=== PATIENT | female | born 1945 | race Caucasian/White ===

== ENCOUNTER → 2016-06-03 | Outpatient (CLI) | payer MEDICARE, OTHER | LOC: OD 12:43 | PROVIDERS: ATTEND Nurse Practitioner | DX: J18.9 Pneumonia, unspecified organism (principal); M19.042 Primary osteoarthritis, left hand | CPT/HCPCS: 71020 ==

== ENCOUNTER 2016-06-14 16:25 | Inpatient (IN) | payer MEDICARE, OTHER ==
[~2016-06-14 16:25] MED LIST: SUCCINYLCHOLINE CHLORIDE INJ 200 MG/10 ML VIAL ONE
[2016-06-14] MEDS ORDERED: CEFTRIAXONE 1 GM/D5W RTU 50 ML IV ONE (16:37)
--- NOTE | 2016-06-14 16:38 | ER Document Report ---
ED General - General Stated Complaint: DIFFICULTY BREATHING Mode of Arrival: Medic Information source: Emergency Med Personnel Cannot obtain history due to: Altered mental status Notes: 71-year-old female history CHF COPD smoker presents from home in respiratory distress. EMS found patient satting in the low 60s, BiPAP was immediately placed. Symptoms have spoken on going only for 3 hours TRAVEL OUTSIDE OF THE [place] IN LAST 30 DAYS: No - HPI Onset: Just prior to arrival Onset/Duration: Sudden Quality of pain: No pain Severity: Severe Pain Level: Denies Associated symptoms: Nonproductive cough, Shortness of breath Exacerbated by: Denies Relieved by: Denies Similar symptoms previously: No Recently seen / treated by doctor: No - Related Data Allergies/Adverse Reactions: codeine [Codeine] Allergy (Mild, Verified 11/12/11 10:26) feels out of control Tetanus Vaccines and Toxoid [Tetanus] Allergy (Unknown, Verified 11/12/11 10:27) arm swell at injection site Past Medical History - Social History Smoking Status: Current Every Day Smoker Cigarette use (# per day): No Chew tobacco use (# tins/day): No Smoking Education Provided: No Family History: Reviewed & Not Pertinent - Past Medical History Cardiac Medical History: Reports: Hx Coronary Artery Disease, Hx Hypertension - medicated Denies: Hx Heart Attack - ? silent MD Pulmonary Medical History: Reports: Hx Bronchitis - was tx 01/16 with solumedrol & Z pack for suspected bronchitis, Hx COPD, Hx Pneumonia - 2006 Denies: Hx Asthma Neurological Medical History: Denies: Hx Cerebrovascular Accident, Hx Seizures GI Medical History: Denies: Hx Hepatitis, Hx Hiatal Hernia, Hx Ulcer Musculoskeltal Medical History: Denies Hx Arthritis Infectious Medical History: Denies: Hx Hepatitis Past Surgical History: Reports: Hx Hysterectomy, Hx Mastectomy - right breast/ restrictions to rt arm. Denies: Hx Open Heart Surgery, Hx Pacemaker - Immunizations Hx Diphtheria, Pertussis, Tetanus Vaccination: No - has swelling at site Review of Systems - Review of Systems Notes: PHYSICAL EXAMINATION: GENERAL: Ill-appearing female significant respiratory distress HEAD: Atraumatic, normocephalic. EYES: Pupils equal round and reactive to light, extraocular movements intact, conjunctiva are normal. ENT: Nares patent, oropharynx clear without exudates. Moist mucous membranes. NECK: Normal range of motion, supple without lymphadenopathy LUNGS: Coarse breath sounds rhonchi all throughout mastectomy HEART: Tachycardic ABDOMEN: Soft, nontender, nondistended abdomen. No guarding, no rebound. No masses appreciated. Female : deferred Musculoskeletal: Patient moving extremities spontaneously NEUROLOGICAL: GCS 10 SKIN: Diaphoretic -: Yes ROS unobtainable due to patient's medical condition Physical Exam - Vital signs Vitals: Pulse Ox 92 06/14/16 17:05 Course - Re-evaluation Re-evalutation: 06/14/16 16:37 Patient on BiPAP satting 79%, immediately intubated on arrival for airway protection 06/14/16 16:53 06/14/16 18:07 X-rays consistent with pneumonia with probable CHF exacerbation, patient will be admitted to hospitalist service to the ICU since she is intubated at this time - Vital Signs Vital signs: Temp Pulse Resp BP Pulse Ox 92 06/14/16 17:05 - Laboratory Result Diagrams: 06/14/16 17:43 06/14/16 17:43 - Diagnostic Test Radiology reviewed: Image reviewed, Reports reviewed Procedures - Intubation Orotracheal Time of Intubation: 16:30 Airway evaluation: Copious secretions, Large tongue Mallampati Classification: Class 3 Medications: Etomidate, Succinylcholine Intubation method: Orotracheal Blade type: Gonzalo Blade size: 4 ETT size: 7.0 ETT secured at: Gums ETT secured at (cm): 22 Breath Sounds after Intubation: Equal End tidal CO2 confirmed: Yes Post Intubation Xray: Yes Intubation Complications: No complications Critical Care Note - Critical Care Note Total time excluding time spent on procedures (mins): 45 Comments: 45 minutes of critical care time spent in direct contact evaluating and reevaluating the patient, treating symptoms, reviewing labs and studies and speaking with family and consultants excluding any procedures Discharge - Discharge Clinical Impression: Respiratory failure requiring intubation Pneumonia Qualifiers: Pneumonia type: due to unspecified organism Laterality: bilateral Lung location : unspecified part of lung Qualified Code(s): J18.9 - Pneumonia, unspecified organism Sepsis Qualifiers: Sepsis type: sepsis due to unspecified organism Qualified Code(s): A41.9 - Sepsis, unspecified organism Condition: Critical Disposition: ADMITTED INPATIENT Admitting Provider: Hospitalist Unit Admitted: ICU
[2016-06-14] MEDS ORDERED: LEVOFLOXACIN 750 MG/D5W RTU 150 ML IV ONE (17:23)
[2016-06-14] MEDS ORDERED: PROPOFOL 100 ML IV ONE (17:31)
[2016-06-14] MEDS ORDERED: ETOMIDATE INJ/PF 20 MG/10 ML SDV IV ONE ×2 (17:31→23:31)
[2016-06-14 18:00] LABS: HEMATOCRIT 31.7 % (36.0-47.0); HEMOGLOBIN 10.3 g/dL (12.0-15.5); HGB HCT DIFFERENCE -0.8; MEAN CORPUSCULAR HEMOGLOBIN 25.4 pg (27.0-33.4); MEAN CORPUSCULAR HGB CONC 32.6 g/dL (32.0-36.0); MEAN CORPUSCULAR VOLUME 78 fl (80-97); RED BLOOD COUNT 4.07 10^6/uL (3.72-5.28); WHITE BLOOD COUNT 25.7 10^3/uL (4.0-10.5)
[2016-06-14 18:10] LABS: PROTHROMBIN TIME 14.8 SEC (11.4-15.4)
[2016-06-14 18:18] LABS: ALANINE AMINOTRANSFERASE 53 U/L (9-52); ALBUMIN 3.4 g/dL (3.5-5.0); ALKALINE PHOSPHATASE 101 U/L (38-126); ANION GAP 15 (5-19); ASPARTATE AMINO TRANSFERASE 69 U/L (14-36); BILIRUBIN,TOTAL 1.3 mg/dL (0.2-1.3); BLOOD UREA NITROGEN 23 mg/dL (7-20); CARBON DIOXIDE 19 mmol/L (22-30); CHLORIDE 98 mmol/L (98-107); CREATININE RESULT 1.37 mg/dL (0.52-1.25); GLUCOSE 271 mg/dL (75-110); POTASSIUM 5.7 mmol/L (3.6-5.0); SODIUM 131.6 mmol/L (137-145)
[2016-06-14 18:19] LABS: BAND NEUTROPHILS % (MANUAL) 6 % (3-5); BASOPHILS % (MANUAL) 0 % (0-2); EOSINOPHILS % (MANUAL) 0 % (0-6); LYMPHOCYTES % (MANUAL) 1 % (13-45); TOTAL CELLS COUNTED 100
[2016-06-14] MEDS ORDERED: LORAZEPAM INJ 2 MG/1 ML VIAL ONE (18:20)
[2016-06-14 18:21] LABS: ANISOCYTOSIS 1+; HYPOCHROMASIA SLIGHT; MICROCYTOSIS 1+; PLATELET CLUMPS PRESENT; POLYCHROMASIA SLIGHT
[2016-06-14] MEDS ORDERED: VANCOMYCIN HCL 1,000 MG in DEXTROSE 5%-WATER 250 ML IV ONE (18:24)
[2016-06-14 18:26] LABS: CALCIUM 6.7 mg/dL (8.4-10.2)
[2016-06-14 18:36] LABS: VENOUS BLOOD BASE EXCESS -5.2 mmol/L; VENOUS BLOOD HCO3 19.9 mmol/L (20-32); VENOUS BLOOD PCO2 37.2 mmHg (35-63); VENOUS BLOOD PH 7.35 (7.30-7.42)
--- NOTE | 2016-06-14 18:38 | EKG REPORT ---
SEVERITY:- ABNORMAL ECG - SINUS RHYTHM PROBABLE LEFT ATRIAL ABNORMALITY NONSPECIFIC INTRAVENTRICULAR CONDUCTION DELAY LEFT VENTRICULAR HYPERTROPHY ANTERIOR Q WAVES, POSSIBLY DUE TO LVH : Confirmed by: Manuel Delarosa 14-Jun-2016 18:38:16
[2016-06-14] MEDS ORDERED: CALCIUM GLUCONATE 2,222 MG in DEXTROSE 5%-WATER 100 ML IV ONE ×2 (18:40→23:35)
[2016-06-14] MEDS ORDERED: NORMAL SALINE 1000 ML 1,000 ML IV PRN (18:42)
[2016-06-14] MEDS ORDERED: DEXTROSE 50%-WATER 25 GM/50 ML DISP.SYRIN IV PRN ×2 (18:43)
[2016-06-14] MEDS ORDERED: DEXTROSE 40% GEL 15 GM TUBE PO PRN ×2 (18:43)
[2016-06-14] MEDS ORDERED: GLUCAGON,HUMAN RECOMB 1 MG INJ IM PRN (18:43)
[2016-06-14] MEDS ORDERED: INSULIN REG, HUMAN 100 UNIT/ML 3 ML VIAL (PYX) SUBCUT PRN (18:43)
--- NOTE | 2016-06-14 18:51 | PDOC H&P ---
History of Present Illness Admission Date/PCP: 06/14/16 18:33 MICAH Yancy EMILY Patient complains of: SOB History of Present Illness: JUS ERICKSON is a 71 year old female Patient nonsmoker non-O2 dependent was brought to the ED after 1 week of respiratory illness during transport patient was placed on BiPAP support and very soon after was intubated in the ED and placed on mechanical ventilation Chest x-ray showed bilateral infiltrates White blood count was 29,000 She was subsequently admitted to intensive care unit under hospitalist service Past Medical History Cardiac Medical History: Reports: Coronary Artery Disease, Hypertension - medicated Denies: Myocardial Infarction - ? silent [place] Pulmonary Medical History: Reports: Bronchitis - was tx 01/16 with solumedrol & Z pack for suspected bronchitis, Chronic Obstructive Pulmonary Disease (COPD), Pneumonia - 2006 Denies: Asthma Neurological Medical History: Denies: Seizures GI Medical History: Denies: Hepatitis, Hiatal Hernia Musculoskeltal Medical History: Denies: Arthritis Hematology: Reports: Anemia - ?? Denies: Sickle Cell Disease Past Surgical History Past Surgical History: Reports: Hysterectomy, Mastectomy - right breast/ restrictions to rt arm Denies: Amputation, Pacemaker Social History Information Source: Relative Smoking Status: Current Every Day Smoker - Advance Directive Resuscitation Status: Full Code Surrogate healthcare decision maker:: Daughters Family History Family History: Reviewed & Not Pertinent Parental Family History Reviewed: Yes Children Family History Reviewed: Yes Sibling(s) Family History Reviewed.: Yes Medication/Allergy Home Medications: Atenolol [Tenormin] 100 mg PO BID 10/14/11 Atorvastatin Calcium [Lipitor 10 Mg Tablet] 80 mg PO QHS 10/14/11 Diltiazem HCl [Diltiazem Er] 120 mg PO BID 10/14/11 Furosemide [Lasix 40 mg Tablet] 40 mg PO BID 10/14/11 Levothyroxine Sodium [Synthroid 112 Mcg Tablet] 0.125 mcg PO DAILY 10/14/11 Lisinopril [Prinivil 5 Mg Tablet] 5 mg PO BID 10/14/11 Metformin HCl [Glucophage 1000 mg Tablet] 1,000 mg PO BID 10/14/11 Potassium 25 Meq Tablet Eff 10 meq PO DAILY 10/14/11 Sertraline HCl [Zoloft] 100 mg PO DAILY 10/14/11 Calcitriol [Rocaltrol 0.25 Mcg Capsule] 0.25 mcg PO DAILY 11/12/11 Calcium/Magnesium/Vit D3 [Calcium 500 Mg Tablet] 2 each PO 11/12/11 Allergies/Adverse Reactions: codeine [Codeine] Allergy (Mild, Verified 11/12/11 10:26) feels out of control Tetanus Vaccines and Toxoid [Tetanus] Allergy (Unknown, Verified 11/12/11 10:27) arm swell at injection site Review of Systems ROS unobtainable: Due to endotracheal tube Physical Exam Vital Signs: Temp Pulse Resp BP Pulse Ox 92 06/14/16 17:05 General appearance: PRESENT: thin, other - Intubated mechanically ventilated and sedated Head exam: PRESENT: atraumatic, normocephalic Eye exam: PRESENT: conjunctiva pink, EOMI, PERRLA. ABSENT: scleral icterus Neck exam: ABSENT: carotid bruit, JVD, lymphadenopathy, thyromegaly Respiratory exam: PRESENT: decreased breath sounds, rales - Bilaterally Cardiovascular exam: PRESENT: RRR, tachycardia Pulses: PRESENT: normal carotid pulses GI/Abdominal exam: PRESENT: normal bowel sounds, soft. ABSENT: distended, guarding, mass, organolmegaly, rebound, tenderness Extremities exam: PRESENT: full ROM. ABSENT: calf tenderness, clubbing, pedal edema Neurological exam: PRESENT: other - Cannot evaluate patient is sedated and on mechanical ventilation Results Laboratory Results: Labs- Entire Visit 06/14/16 06/14/16 06/14/16 17:43 17:43 17:43 WBC 25.7 H RBC 4.07 Hgb 10.3 L Hct 31.7 L MCV 78 L MCH 25.4 L MCHC 32.6 RDW 17.0 H Plt Count 299 Total Counted 100 Seg Neutrophils % Not Reportable Seg Neuts % (Manual) 92 H Band Neutrophils % 6 H Lymphocytes % Not Reportable Lymphocytes % (Manual) 1 L Monocytes % Not Reportable Monocytes % (Manual) 1 L Eosinophils % Not Reportable Eosinophils % (Manual) 0 Basophils % Not Reportable Basophils % (Manual) 0 Absolute Neutrophils Not Reportable Abs Neuts (Manual) 25.2 H Absolute Lymphocytes Not Reportable Abs Lymphs (Manual) 0.3 L Absolute Monocytes Not Reportable Abs Monocytes (Manual) 0.3 Absolute Eosinophils Not Reportable Absolute Eos (Manual) 0.0 Absolute Basophils Not Reportable Abs Basophils (Manual) 0.0 Clumped Platelets PRESENT Platelet Comment ADEQUATE Polychromasia SLIGHT Hypochromasia SLIGHT Anisocytosis 1+ Microcytosis 1+ PT 14.8 INR 1.12 VBG pH VBG pCO2 VBG HCO3 VBG Base Excess Sodium 131.6 L Potassium 5.7 H Chloride 98 Carbon Dioxide 19 L Anion Gap 15 BUN 23 H Creatinine 1.37 H Est GFR ( Amer) 46 L Est GFR (Non-Af Amer) 38 L Glucose 271 H Lactic Acid Calcium 6.7 L* Total Bilirubin 1.3 Direct Bilirubin 0.0 AST 69 H ALT 53 H Alkaline Phosphatase 101 Total Protein 6.0 L Albumin 3.4 L 06/14/16 06/14/16 17:43 18:17 WBC RBC Hgb Hct MCV MCH MCHC RDW Plt Count Total Counted Seg Neutrophils % Seg Neuts % (Manual) Band Neutrophils % Lymphocytes % Lymphocytes % (Manual) Monocytes % Monocytes % (Manual) Eosinophils % Eosinophils % (Manual) Basophils % Basophils % (Manual) Absolute Neutrophils Abs Neuts (Manual) Absolute Lymphocytes Abs Lymphs (Manual) Absolute Monocytes Abs Monocytes (Manual) Absolute Eosinophils Absolute Eos (Manual) Absolute Basophils Abs Basophils (Manual) Clumped Platelets Platelet Comment Polychromasia Hypochromasia Anisocytosis Microcytosis PT INR VBG pH 7.35 VBG pCO2 37.2 VBG HCO3 19.9 L VBG Base Excess -5.2 Sodium Potassium Chloride Carbon Dioxide Anion Gap BUN Creatinine Est GFR ( Amer) Est GFR (Non-Af Amer) Glucose Lactic Acid 2.7 H Calcium Total Bilirubin Direct Bilirubin AST ALT Alkaline Phosphatase Total Protein Albumin EKG Comments: SINUS RHYTHM [PLAA] . PROBABLE LEFT ATRIAL ABNORMALITY [NIVCD] . NONSPECIFIC INTRAVENTRICULAR CONDUCTION DELAY [LVH1] . LEFT VENTRICULAR HYPERTROPHY [AMI17] . ANTERIOR Q WAVES, POSSIBLY DUE TO LVH [id number] JUS ERICKSON 14-Jun-2016 17:01:01 : 1945 71 Years Female Race: White Dept: ED Impressions: Chest X-Ray 06/14/16 16:37 IMPRESSION: 1. Diffuse bilateral alveolar infiltrates, differential including pneumonia/aspiration predominantly. Pulmonary hemorrhage and pulmonary edema felt to be less likely. 2. Appropriate endotracheal tube. 3. Mild gaseous distention in the stomach. Consider placement of a nasogastric tube. Assessment & Plan - Diagnosis (3) Pneumonia Qualifiers: Pneumonia type: due to unspecified organism Laterality: bilateral Lung location: unspecified part of lung Qualified Code(s): J18.9 - Pneumonia, unspecified organism Is this a current diagnosis for this admission?: YesPlan: Bilateral pneumonia Influenza screening was sent (4) Respiratory failure requiring intubation Is this a current diagnosis for this admission?: Yes (5) Sepsis Qualifiers: Sepsis type: sepsis due to unspecified organism Qualified Code(s): A41.9 - Sepsis, unspecified organism Is this a current diagnosis for this admission?: Yes - Time Time Spent with patient: We will initiate treatment with Levaquin and Zosyn and linezolid On the chest x-ray patient has significant cardiomegaly; and a BNP is pending We will just initiate IV fluid after 150 mL/h and reevaluate fluid status There is central venous pressure may be obtained Continue mechanical ventilation Continue sedation with propofol Echocardiogram was performed at bedside There is a very small pericardial effusion without temp amount The heart is enlarged Critical Time spent with patient: 35 or more minutes
[2016-06-14] MEDS ORDERED: LINEZOLID 300 ML IV ONE (19:00)
[2016-06-14] MEDS ORDERED: FUROSEMIDE INJ/PF 20 MG/2 ML SDV IV ONE (19:05)
[2016-06-14 20:44] LABS: THYROID STIMULATING HORMONE 2.78 uIU/mL (0.47-4.68)
[2016-06-14 20:53] LABS: APPEARANCE,URINE SLIGHTLY-CLOUDY; BILIRUBIN,URINE NEGATIVE (NEGATIVE); GLUCOSE, URINE NEGATIVE (NEGATIVE); KETONES,URINE NEGATIVE (NEGATIVE); LEUKOCYTE ESTERASE,URINE NEGATIVE (NEGATIVE); NITRITE,URINE NEGATIVE (NEGATIVE); PROTEIN,URINE >=500 mg/dL (NEGATIVE); URINE SPECIFIC GRAVITY 1.013; UROBILINOGEN,URINE NEGATIVE mg/dL (<2.0)
[2016-06-14 21:48] LABS: ARTERIAL BLOOD BASE EXCESS -1.6 mmol/L; ARTERIAL BLOOD O2 SATURATION 88.2 % (94-98)
[2016-06-14] MEDS ORDERED: NORMAL SALINE INJ/PF 0.9% 10 ML SDV IV PRN (22:04)
--- NOTE | 2016-06-14 22:08 | Operative Report ---
Operative Report DATE OF SURGERY: 06/14/16 PREOPERATIVE DIAGNOSIS: Critically ill patient, need for central venous access POSTOPERATIVE DIAGNOSIS: Critically ill patient, need for central venous access OPERATION: Right internal jugular vein 7 [place]ian triple-lumen central venous line placement with ultrasound guidance SURGEON: CARY REYNOLDS ANESTHESIA: Local TISSUE REMOVED OR ALTERED: None COMPLICATIONS: None noted ESTIMATED BLOOD LOSS: minimal INTRAOPERATIVE FINDINGS: Normal location of the right internal carotid artery and the right internal jugular vein as identified by ultrasound. PROCEDURE: Timeout was performed. The patient was prepped and draped in normal sterile fashion. Ultrasound was used to identify the right internal jugular vein and right common carotid artery. The skin over the vein was infiltrated with local anesthetic. An 11 blade scalpel was used to make a skin tali. Under ultrasound guidance, a Cook needle was used to cannulate the right internal jugular vein with return of nonpulsatile dark red venous blood. Seldinger technique was used. The guidewire was placed. The Cook needle was removed. The tract was dilated. Catheter was placed over the guidewire. The guidewire was removed. All lumens easily aspirated and flushed. The catheter was sewn in place at the skin and at the end hub. A Biopatch was placed. A sterile dressing was placed. All sharps were accounted for and disposed of properly. The patient tolerated the procedure well. A chest x-ray was ordered and confirmed good location of the line with no pneumothorax.
[2016-06-14] MEDS ORDERED: PIPERACILLIN SODIUM/TAZOBACTAM 3.375 GM in NORMAL SALINE 100 ML IV ONE (22:15)
[2016-06-14] MEDS ORDERED: ACETAMINOPHEN 325 MG TABLET PO PRN (22:16)
[2016-06-14] MEDS ORDERED: CALCIUM GLUCONATE 1000 MG/10 ML INJ IV ONE (23:20)
[2016-06-14] MEDS ORDERED: FUROSEMIDE INJ/PF 20 MG/2 ML SDV ONE (23:21)
[2016-06-14] MEDS ORDERED: PROPOFOL 100 ML IV PRN (23:31)
[2016-06-14] MEDS ORDERED: SUCCINYLCHOLINE CHLORIDE INJ 200 MG/10 ML VIAL IV ONE (23:31)
[2016-06-14] MEDS ORDERED: INFLUENZA ADLT QUAD (36MOS+) 2016-17 VAC 0.5 ML SYR IM PRN (23:41)
[2016-06-15] MEDS ORDERED: PIPERACILLIN/TAZOBACTAM 3.375 GM VIAL IV ONE ×2 (01:10→06:38)
[2016-06-15] MEDS: ALBUTEROL SULFATE 0.083% NEB 2.5 MG/3 ML AMPUL NEB SCH ×3 (02:43→13:30)
[2016-06-15] MEDS: PROPOFOL 100 ML IV PRN ×3 (02:50→13:54)
[2016-06-15] MEDS ORDERED: PIPERACILLIN SODIUM/TAZOBACTAM 3.375 GM in NORMAL SALINE 100 ML IV SCH ×3 (06:00)
[2016-06-15 06:44] LABS: ANION GAP 10 (5-19); BLOOD UREA NITROGEN 32 mg/dL (7-20); CALCIUM 7.1 mg/dL (8.4-10.2); CARBON DIOXIDE 21 mmol/L (22-30); CHLORIDE 101 mmol/L (98-107); CREATININE RESULT 1.47 mg/dL (0.52-1.25); GLUCOSE 161 mg/dL (75-110); SODIUM 131.8 mmol/L (137-145); TRIGLYCERIDES 86 mg/dL (<150)
[2016-06-15 06:55] LABS: POTASSIUM 4.7 mmol/L (3.6-5.0)
[2016-06-15 06:59] LABS: HEMATOCRIT 27.1 % (36.0-47.0); HGB HCT DIFFERENCE -0.1; MEAN CORPUSCULAR HEMOGLOBIN 25.3 pg (27.0-33.4); MEAN CORPUSCULAR HGB CONC 33.2 g/dL (32.0-36.0); MEAN CORPUSCULAR VOLUME 76 fl (80-97); RED BLOOD COUNT 3.55 10^6/uL (3.72-5.28); RED CELL DISTRIBUTION WIDTH 16.9 % (11.5-14.0); WHITE BLOOD COUNT 21.9 10^3/uL (4.0-10.5)
[2016-06-15 07:05] LABS: BAND NEUTROPHILS % (MANUAL) 4 % (3-5); BASOPHILS % (MANUAL) 0 % (0-2); EOSINOPHILS % (MANUAL) 0 % (0-6); LYMPHOCYTES % (MANUAL) 1 % (13-45); TOTAL CELLS COUNTED 100
[2016-06-15 07:07] LABS: ANISOCYTOSIS 1+; HYPOCHROMASIA SLIGHT; MICROCYTOSIS 1+; OVALOCYTES SLIGHT; POIKILOCYTOSIS SLIGHT; POLYCHROMASIA SLIGHT; TEAR DROP CELLS SLIGHT
[2016-06-15] MEDS ORDERED: MIDAZOLAM HCL 100 ML IV PRN (07:34)
[2016-06-15] MEDS ORDERED: NORMAL SALINE 1000 ML 1,000 ML IV PRN (07:47)
[2016-06-15] MEDS ORDERED: FUROSEMIDE INJ/PF 20 MG/2 ML SDV ONE (07:50)
[2016-06-15] MEDS ORDERED: MIDAZOLAM HCL 100 ML IV ONE (07:50)
[2016-06-15] MEDS ORDERED: CALCIUM GLUCONATE 1000 MG/10 ML INJ IV ONE ×2 (08:55→09:00)
[2016-06-15 09:00] LABS: ARTERIAL BLOOD BASE EXCESS -3.1 mmol/L; ARTERIAL BLOOD O2 SATURATION 94.9 % (94-98)
[2016-06-15] MEDS ORDERED: FUROSEMIDE INJ/PF 20 MG/2 ML SDV IV ONE (09:00)
[2016-06-15] MEDS ORDERED: CALCIUM GLUCONATE 2,000 MG in DEXTROSE 5%-WATER 100 ML IV ONE (09:30)
[2016-06-15] MEDS ORDERED: LINEZOLID 600 MG RTU 300 ML IV SCH (10:00)
[2016-06-15] MEDS ORDERED: LINEZOLID 300 ML IV SCH (10:00)
[2016-06-15 10:09] LABS: CREATINE KINASE MB 2.46 ng/mL (<4.55)
[2016-06-15 10:13] LABS: TROPONIN I 1.46 ng/mL
--- NOTE | 2016-06-15 10:40 | EKG REPORT ---
SEVERITY:- ABNORMAL ECG - SINUS RHYTHM ANTERIOR INFARCT, AGE INDETERMINATE BORDERLINE T ABNORMALITIES, INFERIOR LEADS PROLONGED QT INTERVAL : Confirmed by: Manuel Delarosa 15-Jun-2016 10:39:59
[2016-06-15] MEDS: PIPERACILLIN SODIUM/TAZOBACTAM 2.25 GM in NORMAL SALINE 50 ML IV SCH ×2 (12:55→18:10)
--- NOTE | 2016-06-15 13:47 | PDOC TRANSFER SUMMARY ---
General Admission Date/PCP: 06/14/16 22:16 MICAH DIAZ Admission Date: 06/14/16 Transfer Date: 06/15/16 Accepting Facility: [facility] Resuscitation Status: Full Code - Transfer Diagnosis (1) CKD (chronic kidney disease), stage III Is this a current diagnosis for this admission?: Yes (2) Poor intravenous access Is this a current diagnosis for this admission?: YesDiagnosis Summary: triple lumen catheter placed right IJ (3) Pneumonia Is this a current diagnosis for this admission?: Yes (4) Respiratory failure requiring intubation Is this a current diagnosis for this admission?: Yes (5) Sepsis Is this a current diagnosis for this admission?: YesDiagnosis Summary: 06/14/16 06/15/16 06/15/16 17:43 06:05 06:05 WBC 25.7 H 21.9 H Hgb 10.3 L 9.0 L Seg Neuts % (Manual) 92 H 94 H ESR 88 H 06/14/16 06/14/16 17:43 22:18 Lactic Acid 2.7 H 1.1 (6) Cardiomyopathy Is this a current diagnosis for this admission?: YesDiagnosis Summary: Echocardiogram : EF 30% with global hypokinesia left ventricle (7) Ischemia due to increased oxygen demand Is this a current diagnosis for this admission?: YesDiagnosis Summary: 06/14/16 06/15/16 17:43 09:20 Troponin I 1.460 NT-Pro-B Natriuret Pep 66267 H EKG changes with new ST depression anterior leads and T depression Q waves V1-6 troponin 1.4 (8) Hypocalcemia Is this a current diagnosis for this admission?: YesDiagnosis Summary: 06/14/16 06/15/16 17:43 06:05 Calcium 6.7 L* 7.1 L Calcium was relaced Vitamin D levels pending (9) Anemia Is this a current diagnosis for this admission?: YesDiagnosis Summary: microcytic - likely iron deficiency anemia 06/15/16 06:05 Hgb 9.0 L Hct 27.1 L MCV 76 L - Transfer Medications Home Medications: Atenolol [Tenormin] 50 mg PO BID 10/14/11 Atorvastatin Calcium [Lipitor 10 Mg Tablet] 80 mg PO QHS 10/14/11 Diltiazem HCl [Diltiazem Er] 120 mg PO BID 10/14/11 Furosemide [Lasix 40 mg Tablet] 40 mg PO BID 10/14/11 Levothyroxine Sodium [Synthroid 112 Mcg Tablet] 0.125 mcg PO DAILY 10/14/11 Lisinopril [Prinivil 5 Mg Tablet] 5 mg PO BID 10/14/11 Sertraline HCl [Zoloft] 100 mg PO DAILY 10/14/11 Calcitriol [Rocaltrol 0.25 Mcg Capsule] 0.25 mcg PO DAILY 11/12/11 Cyanocobalamin/FA/Pyridoxine [Folbee Tablet] 1 tab PO DAILY 06/15/16 Esomeprazole Magnesium [Nexium] 40 mg PO DAILY 06/15/16 Folic Acid/Vitamin B Comp W-C [Folbee Plus Tablet] 5 mg PO DAILY 06/15/16 Gabapentin [Neurontin 100 mg Capsule] 200 mg PO HSP 06/15/16 Magnesium Oxide [Mag-Ox 400 mg Tablet] 400 mg PO BID 06/15/16 Metolazone [Zaroxolyn 5 mg Tablet] 5 mg PO DAILY 06/15/16 Potassium Chloride [Klor-Con 10] 10 meq PO DAILY 06/15/16 Sitagliptin Phosphate [Januvia 50 mg Tablet] 50 mg PO DAILY 06/15/16 Transfer Medications: Current Medications Acetaminophen (Tylenol 325 Mg Tablet) 650 mg PO Q4HP PRN Stop: 07/14/16 22:15 Albuterol (Ventolin 0.083% Neb 2.5 Mg/3 Ml Ampul) 2.5 mg NEB RTQ6 [place] Stop: 07/15/16 01:59 Last Admin: 06/15/16 13:30 Dose: 2.5 mg Dextrose (Dextrose Inj 50% Syringe (25 Gm/50 Ml)) 12.5 gm IV PRN PRN; Protocol PRN Reason: FOR BG 50-69 IN ALERT PATIENT Stop: 07/14/16 18:42 Dextrose (Dextrose Inj 50% Syringe (25 Gm/50 Ml)) 25 gm IV PRN PRN PRN Reason: Protocol Stop: 07/14/16 18:42 Enoxaparin Sodium (Lovenox Inj 40 Mg/0.4 Ml Disp.Syrin) 40 mg SUBCUT Q12 [place] Stop: 07/15/16 13:44 Glucagon (Glucagen Inj 1 Mg Vial) 1 mg IM PRN PRN; Protocol PRN Reason: Evaluate for BG < 70 Stop: 07/14/16 18:42 Glucose (Glutose 40% Gel 15 Gm Tube) 15 gm PO PRN PRN; Protocol PRN Reason: FOR BG 50-69 IN ALERT PATIENT Stop: 07/14/16 18:42 Glucose (Glutose 40% Gel 15 Gm Tube) 30 gm PO PRN PRN; Protocol PRN Reason: FOR BG < 50 IN ALERT PATIENT Stop: 07/14/16 18:42 Heparin Sodium (Porcine) (Heparin Flush 10 Unit/Ml 5 Ml Disp.Syrg) 30 unit IV Q8 [facility] Stop: 07/15/16 05:59 Last Admin: 06/15/16 06:16 Dose: 30 unit Heparin Sodium (Porcine) (Heparin Flush 10 Unit/Ml 5 Ml Disp.Syrg) 30 unit IV .AFTER EACH USE PRN PRN Reason: AFTER EACH INTERMITTENT USE Stop: 07/14/16 22:03 Propofol (Diprivan Rtu 1000 Mg/100 Ml Inf.Bottle) 100 mls @ 0 mls/hr IV CONTINUOUS PRN; Protocol; Titrate PRN Reason: THIS MED IS NOT "PRN" Stop: 07/14/16 18:51 Last Admin: 06/15/16 08:57 Dose: 100 ml Midazolam HCl (Versed Rtu 50 Mg/100 Ml Premix Bag) 100 mls @ 0 mls/hr IV CONTINUOUS PRN; Protocol; Titrate PRN Reason: THIS MED IS NOT "PRN" Stop: 06/22/16 07:33 Sodium Chloride (Nacl 0.9% 1000 Ml Iv Soln) 1,000 mls @ 75 mls/hr IV CONTINUOUS PRN PRN Reason: THIS MED IS NOT "PRN" Stop: 07/14/16 18:41 Last Admin: 06/15/16 09:03 Dose: 1,000 ml Piperacillin Sod/Tazobactam (Sod 2.25 gm/ Sodium Chloride) 50 mls @ 100 mls/hr IV Q6 [facility] Stop: 06/22/16 11:59 Last Admin: 06/15/16 12:55 Dose: 2.25 gm Levofloxacin/Dextrose (Levaquin Rtu 750 Mg/D5w 150 Ml Premix) 750 mg in 150 mls @ 100 mls/hr IV Q2DAYS@1800 [facility] Stop: 06/23/16 17:59 Linezolid (Zyvox Rtu 600 Mg/300 Ml Premixed) 300 mls @ 300 mls/hr IV Q12 [place] Stop: 06/22/16 09:59 Last Admin: 06/15/16 10:01 Dose: 300 ml Influenza Virus Vaccine Quadrival (Fluzone Adlt Quad [id number] Vac 0.5 Ml Syr) 0.5 ml IM .AT DISCHARGE PRN PRN Reason: THIS MED IS NOT "PRN" Stop: 07/14/16 23:40 Insulin Human Regular (Humulin R (Pyxis) Insulin 100 Unit/Ml 3ml) 0 - 12 unit SUBCUT Q6HP PRN PRN Reason: Protocol Stop: 07/14/16 18:42 Sodium Chloride (Nacl 0.9% Inj/Pf 10 Ml Sdv) 10 ml IV .AFTER EACH USE PRN PRN Reason: AFTER EACH INTERMITTENT USE Stop: 07/14/16 22:03 - Allergies Allergies/Adverse Reactions: codeine [Codeine] Allergy (Mild, Verified 11/12/11 10:26) feels out of control Tetanus Vaccines and Toxoid [Tetanus] Allergy (Unknown, Verified 11/12/11 10:27) arm swell at injection site - Diet/Activity Discharge Diet: Other (Comments) - NPO Hospital Course Hospital Course: 71 yo female patient nonsmoker non-O2 dependent was brought to the ED after 1 week of respiratory illness during transport patient was placed on BiPAP support and very soon after was intubated in the ED and placed on mechanical ventilation Chest x-ray showed bilateral infiltrates White blood count was 29,000 She was subsequently admitted to intensive care unit under hospitalist service 1 Respiratory failure secondary to sepsis, pneumonia and acute CHF CXR showed bilateral infiltrates and fluid overload When intubated frothy secretions were suctioned from trachea Patient was initially placed on 100 % O2 Patient was treated with broad spectrum antibiotics : Zosyn , Vancomycin , Levaquin IV fluids were ordered at 150 ml/ h and lasix 20 mg IVP q12H was given Patient's condition improved and today she is oxygenating better at 40%FIO2 the repeat Chest xray shows some improvement of the fluid overload 2- Cardiomyopathy Patient had been short of breath one week prior to admission , without complains of chest pain Patient has evidence of ischemic cardiomyopathy with EKG changes and likely ongoing ischemia Treatment was initiated with Lovenox (40 mg q12 -decreased dose because of GFR ), ASA, Lipitor Physical Exam Vital Signs: Temp Pulse Resp BP Pulse Ox 98.1 F 66 21 H 100/46 L 94 06/15/16 12:00 06/15/16 12:00 06/15/16 12:00 06/15/16 12:00 06/15/16 12:25 Intake & Output 06/14/16 06/15/16 06/16/16 00:59 00:59 00:59 Intake Total 1217 Output Total 70 910 Balance -70 307 Weight 65.6 kg General appearance: PRESENT: other - intubated , sedated , on mechanical ventilation chronically ill looking Head exam: PRESENT: atraumatic, normocephalic Eye exam: PRESENT: conjunctiva pink, EOMI, PERRLA. ABSENT: scleral icterus Neck exam: ABSENT: carotid bruit, JVD, lymphadenopathy, thyromegaly Respiratory exam: PRESENT: rhonchi - bilaterally. ABSENT: rales, wheezes Cardiovascular exam: PRESENT: RRR. ABSENT: diastolic murmur, rubs, systolic murmur Pulses: PRESENT: normal dorsalis pedis pul GI/Abdominal exam: PRESENT: normal bowel sounds, soft. ABSENT: distended, guarding, mass, organolmegaly, rebound, tenderness Extremities exam: PRESENT: full ROM. ABSENT: calf tenderness, clubbing, pedal edema Results Laboratory Results: 06/15/16 06:05 06/15/16 06:05 06/14/16 06/15/16 06/15/16 22:18 06:05 06:05 WBC 21.9 H RBC 3.55 L Hgb 9.0 L Hct 27.1 L MCV 76 L MCH 25.3 L MCHC 33.2 RDW 16.9 H Plt Count 249 Seg Neutrophils % Not Reportable Lymphocytes % Not Reportable Monocytes % Not Reportable Eosinophils % Not Reportable Basophils % Not Reportable Absolute Neutrophils Not Reportable Absolute Lymphocytes Not Reportable Absolute Monocytes Not Reportable Absolute Eosinophils Not Reportable Absolute Basophils Not Reportable Carbonic Acid HCO3/H2CO3 Ratio ABG pH ABG pCO2 ABG pO2 ABG HCO3 ABG O2 Saturation ABG Base Excess FiO2 Sodium 131.8 L Potassium 4.7 D Chloride 101 Carbon Dioxide 21 L Anion Gap 10 BUN 32 H Creatinine 1.47 H Est GFR ( Amer) 42 L Est GFR (Non-Af Amer) 35 L Glucose 161 H Lactic Acid 1.1 Calcium 7.1 L C-Reactive Protein Triglycerides 86 06/15/16 06/15/16 06/15/16 06:05 08:30 08:50 WBC RBC Hgb Hct MCV MCH MCHC RDW Plt Count Seg Neutrophils % Lymphocytes % Monocytes % Eosinophils % Basophils % Absolute Neutrophils Absolute Lymphocytes Absolute Monocytes Absolute Eosinophils Absolute Basophils Carbonic Acid Cancelled 1.03 L HCO3/H2CO3 Ratio Cancelled 20:1 ABG pH Cancelled 7.41 ABG pCO2 Cancelled 34.1 L ABG pO2 Cancelled 72.6 L ABG HCO3 Cancelled 21.1 ABG O2 Saturation Cancelled 94.9 ABG Base Excess Cancelled -3.1 FiO2 Cancelled 40% Sodium Potassium Chloride Carbon Dioxide Anion Gap BUN Creatinine Est GFR ( Amer) Est GFR (Non-Af Amer) Glucose Lactic Acid Calcium C-Reactive Protein 201.0 H Triglycerides 06/15/16 06/15/16 06:05 09:20 Creatine Kinase 97 CK-MB (CK-2) 2.46 Troponin I 1.460 Labs- Entire Visit 06/14/16 06/14/16 06/14/16 17:43 17:43 17:43 WBC 25.7 H RBC 4.07 Hgb 10.3 L Hct 31.7 L MCV 78 L MCH 25.4 L MCHC 32.6 RDW 17.0 H Plt Count 299 Total Counted 100 Seg Neutrophils % Not Reportable Seg Neuts % (Manual) 92 H Band Neutrophils % 6 H Lymphocytes % Not Reportable Lymphocytes % (Manual) 1 L Monocytes % Not Reportable Monocytes % (Manual) 1 L Eosinophils % Not Reportable Eosinophils % (Manual) 0 Basophils % Not Reportable Basophils % (Manual) 0 Absolute Neutrophils Not Reportable Abs Neuts (Manual) 25.2 H Absolute Lymphocytes Not Reportable Abs Lymphs (Manual) 0.3 L Absolute Monocytes Not Reportable Abs Monocytes (Manual) 0.3 Absolute Eosinophils Not Reportable Absolute Eos (Manual) 0.0 Absolute Basophils Not Reportable Abs Basophils (Manual) 0.0 Clumped Platelets PRESENT Platelet Comment ADEQUATE Polychromasia SLIGHT Hypochromasia SLIGHT Poikilocytosis Anisocytosis 1+ Microcytosis 1+ Tear Drop Cells Ovalocytes ESR PT 14.8 INR 1.12 Carbonic Acid HCO3/H2CO3 Ratio ABG pH ABG pCO2 ABG pO2 ABG HCO3 ABG Total CO2 ABG O2 Saturation ABG Base Excess VBG pH VBG pCO2 VBG HCO3 VBG Base Excess FiO2 Sodium 131.6 L Potassium 5.7 H Chloride 98 Carbon Dioxide 19 L Anion Gap 15 BUN 23 H Creatinine 1.37 H Est GFR ( Amer) 46 L Est GFR (Non-Af Amer) 38 L Glucose 271 H POC Glucose Lactic Acid Calcium 6.7 L* Total Bilirubin 1.3 Direct Bilirubin 0.0 AST 69 H ALT 53 H Alkaline Phosphatase 101 Creatine Kinase CK-MB (CK-2) Troponin I C-Reactive Protein NT-Pro-B Natriuret Pep Total Protein 6.0 L Albumin 3.4 L Triglycerides TSH Free T4 Urine Color Urine Appearance Urine pH Ur Specific [place] Urine Protein Urine Glucose (UA) Urine Ketones Urine Blood Urine Nitrite Urine Bilirubin Urine Urobilinogen Ur Leukocyte Esterase Urine WBC (Auto) Urine RBC (Auto) Urine Bacteria (Auto) Squamous Epi Cells Auto Urine Mucus (Auto) Urine Ascorbic Acid Influenza A (Rapid) Influenza B (Rapid) 06/14/16 06/14/16 06/14/16 17:43 17:43 17:43 WBC RBC Hgb Hct MCV MCH MCHC RDW Plt Count Total Counted Seg Neutrophils % Seg Neuts % (Manual) Band Neutrophils % Lymphocytes % Lymphocytes % (Manual) Monocytes % Monocytes % (Manual) Eosinophils % Eosinophils % (Manual) Basophils % Basophils % (Manual) Absolute Neutrophils Abs Neuts (Manual) Absolute Lymphocytes Abs Lymphs (Manual) Absolute Monocytes Abs Monocytes (Manual) Absolute Eosinophils Absolute Eos (Manual) Absolute Basophils Abs Basophils (Manual) Clumped Platelets Platelet Comment Polychromasia Hypochromasia Poikilocytosis Anisocytosis Microcytosis Tear Drop Cells Ovalocytes ESR PT INR Carbonic Acid HCO3/H2CO3 Ratio ABG pH ABG pCO2 ABG pO2 ABG HCO3 ABG Total CO2 ABG O2 Saturation ABG Base Excess VBG pH VBG pCO2 VBG HCO3 VBG Base Excess FiO2 Sodium Potassium Chloride Carbon Dioxide Anion Gap BUN Creatinine Est GFR ( Amer) Est GFR (Non-Af Amer) Glucose POC Glucose Lactic Acid 2.7 H Calcium Total Bilirubin Direct Bilirubin AST ALT Alkaline Phosphatase Creatine Kinase CK-MB (CK-2) Troponin I C-Reactive Protein NT-Pro-B Natriuret Pep 01123 H Total Protein Albumin Triglycerides TSH 2.78 Free T4 1.89 Urine Color Urine Appearance Urine pH Ur Specific [place] Urine Protein Urine Glucose (UA) Urine Ketones Urine Blood Urine Nitrite Urine Bilirubin Urine Urobilinogen Ur Leukocyte Esterase Urine WBC (Auto) Urine RBC (Auto) Urine Bacteria (Auto) Squamous Epi Cells Auto Urine Mucus (Auto) Urine Ascorbic Acid Influenza A (Rapid) Influenza B (Rapid) 06/14/16 06/14/16 06/14/16 18:17 20:20 21:00 WBC RBC Hgb Hct MCV MCH MCHC RDW Plt Count Total Counted Seg Neutrophils % Seg Neuts % (Manual) Band Neutrophils % Lymphocytes % Lymphocytes % (Manual) Monocytes % Monocytes % (Manual) Eosinophils % Eosinophils % (Manual) Basophils % Basophils % (Manual) Absolute Neutrophils Abs Neuts (Manual) Absolute Lymphocytes Abs Lymphs (Manual) Absolute Monocytes Abs Monocytes (Manual) Absolute Eosinophils Absolute Eos (Manual) Absolute Basophils Abs Basophils (Manual) Clumped Platelets Platelet Comment Polychromasia Hypochromasia Poikilocytosis Anisocytosis Microcytosis Tear Drop Cells Ovalocytes ESR PT INR Carbonic Acid 1.19 HCO3/H2CO3 Ratio 19:1 ABG pH 7.39 ABG pCO2 39.4 ABG pO2 54.7 L ABG HCO3 23.2 ABG Total CO2 24.4 ABG O2 Saturation 88.2 L ABG Base Excess -1.6 VBG pH 7.35 VBG pCO2 37.2 VBG HCO3 19.9 L VBG Base Excess -5.2 FiO2 100% Sodium Potassium Chloride Carbon Dioxide Anion Gap BUN Creatinine Est GFR ( Amer) Est GFR (Non-Af Amer) Glucose POC Glucose Lactic Acid Calcium Total Bilirubin Direct Bilirubin AST ALT Alkaline Phosphatase Creatine Kinase CK-MB (CK-2) Troponin I C-Reactive Protein NT-Pro-B Natriuret Pep Total Protein Albumin Triglycerides TSH Free T4 Urine Color YELLOW Urine Appearance SLIGHTLY-CLOUDY Urine pH 5.0 Ur Specific [place] 1.013 Urine Protein >=500 H Urine Glucose (UA) NEGATIVE Urine Ketones NEGATIVE Urine Blood NEGATIVE Urine Nitrite NEGATIVE Urine Bilirubin NEGATIVE Urine Urobilinogen NEGATIVE Ur Leukocyte Esterase NEGATIVE Urine WBC (Auto) 1 Urine RBC (Auto) 2 Urine Bacteria (Auto) TRACE Squamous Epi Cells Auto 1 Urine Mucus (Auto) RARE Urine Ascorbic Acid NEGATIVE Influenza A (Rapid) Influenza B (Rapid) 06/14/16 06/15/16 06/15/16 22:18 00:40 01:04 WBC RBC Hgb Hct MCV MCH MCHC RDW Plt Count Total Counted Seg Neutrophils % Seg Neuts % (Manual) Band Neutrophils % Lymphocytes % Lymphocytes % (Manual) Monocytes % Monocytes % (Manual) Eosinophils % Eosinophils % (Manual) Basophils % Basophils % (Manual) Absolute Neutrophils Abs Neuts (Manual) Absolute Lymphocytes Abs Lymphs (Manual) Absolute Monocytes Abs Monocytes (Manual) Absolute Eosinophils Absolute Eos (Manual) Absolute Basophils Abs Basophils (Manual) Clumped Platelets Platelet Comment Polychromasia Hypochromasia Poikilocytosis Anisocytosis Microcytosis Tear Drop Cells Ovalocytes ESR PT INR Carbonic Acid HCO3/H2CO3 Ratio ABG pH ABG pCO2 ABG pO2 ABG HCO3 ABG Total CO2 ABG O2 Saturation ABG Base Excess VBG pH VBG pCO2 VBG HCO3 VBG Base Excess FiO2 Sodium Potassium Chloride Carbon Dioxide Anion Gap BUN Creatinine Est GFR ( Amer) Est GFR (Non-Af Amer) Glucose POC Glucose 196 H Lactic Acid 1.1 Calcium Total Bilirubin Direct Bilirubin AST ALT Alkaline Phosphatase Creatine Kinase CK-MB (CK-2) Troponin I C-Reactive Protein NT-Pro-B Natriuret Pep Total Protein Albumin Triglycerides TSH Free T4 Urine Color Urine Appearance Urine pH Ur Specific [place] Urine Protein Urine Glucose (UA) Urine Ketones Urine Blood Urine Nitrite Urine Bilirubin Urine Urobilinogen Ur Leukocyte Esterase Urine WBC (Auto) Urine RBC (Auto) Urine Bacteria (Auto) Squamous Epi Cells Auto Urine Mucus (Auto) Urine Ascorbic Acid Influenza A (Rapid) NEGATIVE Influenza B (Rapid) NEGATIVE 06/15/16 06/15/16 06/15/16 06:05 06:05 06:05 WBC 21.9 H RBC 3.55 L Hgb 9.0 L Hct 27.1 L MCV 76 L MCH 25.3 L MCHC 33.2 RDW 16.9 H Plt Count 249 Total Counted 100 Seg Neutrophils % Not Reportable Seg Neuts % (Manual) 94 H Band Neutrophils % 4 Lymphocytes % Not Reportable Lymphocytes % (Manual) 1 L Monocytes % Not Reportable Monocytes % (Manual) 1 L Eosinophils % Not Reportable Eosinophils % (Manual) 0 Basophils % Not Reportable Basophils % (Manual) 0 Absolute Neutrophils Not Reportable Abs Neuts (Manual) 21.5 H Absolute Lymphocytes Not Reportable Abs Lymphs (Manual) 0.2 L Absolute Monocytes Not Reportable Abs Monocytes (Manual) 0.2 Absolute Eosinophils Not Reportable Absolute Eos (Manual) 0.0 Absolute Basophils Not Reportable Abs Basophils (Manual) 0.0 Clumped Platelets Platelet Comment ADEQUATE Polychromasia SLIGHT Hypochromasia SLIGHT Poikilocytosis SLIGHT Anisocytosis 1+ Microcytosis 1+ Tear Drop Cells SLIGHT Ovalocytes SLIGHT ESR 88 H PT INR Carbonic Acid HCO3/H2CO3 Ratio ABG pH ABG pCO2 ABG pO2 ABG HCO3 ABG Total CO2 ABG O2 Saturation ABG Base Excess VBG pH VBG pCO2 VBG HCO3 VBG Base Excess FiO2 Sodium 131.8 L Potassium 4.7 D Chloride 101 Carbon Dioxide 21 L Anion Gap 10 BUN 32 H Creatinine 1.47 H Est GFR ( Amer) 42 L Est GFR (Non-Af Amer) 35 L Glucose 161 H POC Glucose Lactic Acid Calcium 7.1 L Total Bilirubin Direct Bilirubin AST ALT Alkaline Phosphatase Creatine Kinase CK-MB (CK-2) Troponin I C-Reactive Protein NT-Pro-B Natriuret Pep Total Protein Albumin Triglycerides 86 TSH Free T4 Urine Color Urine Appearance Urine pH Ur Specific [place] Urine Protein Urine Glucose (UA) Urine Ketones Urine Blood Urine Nitrite Urine Bilirubin Urine Urobilinogen Ur Leukocyte Esterase Urine WBC (Auto) Urine RBC (Auto) Urine Bacteria (Auto) Squamous Epi Cells Auto Urine Mucus (Auto) Urine Ascorbic Acid Influenza A (Rapid) Influenza B (Rapid) 06/15/16 06/15/16 06/15/16 06:05 06:05 08:30 WBC RBC Hgb Hct MCV MCH MCHC RDW Plt Count Total Counted Seg Neutrophils % Seg Neuts % (Manual) Band Neutrophils % Lymphocytes % Lymphocytes % (Manual) Monocytes % Monocytes % (Manual) Eosinophils % Eosinophils % (Manual) Basophils % Basophils % (Manual) Absolute Neutrophils Abs Neuts (Manual) Absolute Lymphocytes Abs Lymphs (Manual) Absolute Monocytes Abs Monocytes (Manual) Absolute Eosinophils Absolute Eos (Manual) Absolute Basophils Abs Basophils (Manual) Clumped Platelets Platelet Comment Polychromasia Hypochromasia Poikilocytosis Anisocytosis Microcytosis Tear Drop Cells Ovalocytes ESR PT INR Carbonic Acid Cancelled HCO3/H2CO3 Ratio Cancelled ABG pH Cancelled ABG pCO2 Cancelled ABG pO2 Cancelled ABG HCO3 Cancelled ABG Total CO2 Cancelled ABG O2 Saturation Cancelled ABG Base Excess Cancelled VBG pH VBG pCO2 VBG HCO3 VBG Base Excess FiO2 Cancelled Sodium Potassium Chloride Carbon Dioxide Anion Gap BUN Creatinine Est GFR ( Amer) Est GFR (Non-Af Amer) Glucose POC Glucose Lactic Acid Calcium Total Bilirubin Direct Bilirubin AST ALT Alkaline Phosphatase Creatine Kinase 97 CK-MB (CK-2) Troponin I C-Reactive Protein 201.0 H NT-Pro-B Natriuret Pep Total Protein Albumin Triglycerides TSH Free T4 Urine Color Urine Appearance Urine pH Ur Specific [place] Urine Protein Urine Glucose (UA) Urine Ketones Urine Blood Urine Nitrite Urine Bilirubin Urine Urobilinogen Ur Leukocyte Esterase Urine WBC (Auto) Urine RBC (Auto) Urine Bacteria (Auto) Squamous Epi Cells Auto Urine Mucus (Auto) Urine Ascorbic Acid Influenza A (Rapid) Influenza B (Rapid) 06/15/16 06/15/16 06/15/16 08:50 09:20 12:54 WBC RBC Hgb Hct MCV MCH MCHC RDW Plt Count Total Counted Seg Neutrophils % Seg Neuts % (Manual) Band Neutrophils % Lymphocytes % Lymphocytes % (Manual) Monocytes % Monocytes % (Manual) Eosinophils % Eosinophils % (Manual) Basophils % Basophils % (Manual) Absolute Neutrophils Abs Neuts (Manual) Absolute Lymphocytes Abs Lymphs (Manual) Absolute Monocytes Abs Monocytes (Manual) Absolute Eosinophils Absolute Eos (Manual) Absolute Basophils Abs Basophils (Manual) Clumped Platelets Platelet Comment Polychromasia Hypochromasia Poikilocytosis Anisocytosis Microcytosis Tear Drop Cells Ovalocytes ESR PT INR Carbonic Acid 1.03 L HCO3/H2CO3 Ratio 20:1 ABG pH 7.41 ABG pCO2 34.1 L ABG pO2 72.6 L ABG HCO3 21.1 ABG Total CO2 22.1 ABG O2 Saturation 94.9 ABG Base Excess -3.1 VBG pH VBG pCO2 VBG HCO3 VBG Base Excess FiO2 40% Sodium Potassium Chloride Carbon Dioxide Anion Gap BUN Creatinine Est GFR ( Amer) Est GFR (Non-Af Amer) Glucose POC Glucose 158 H Lactic Acid Calcium Total Bilirubin Direct Bilirubin AST ALT Alkaline Phosphatase Creatine Kinase CK-MB (CK-2) 2.46 Troponin I 1.460 C-Reactive Protein NT-Pro-B Natriuret Pep Total Protein Albumin Triglycerides TSH Free T4 Urine Color Urine Appearance Urine pH Ur Specific [place] Urine Protein Urine Glucose (UA) Urine Ketones Urine Blood Urine Nitrite Urine Bilirubin Urine Urobilinogen Ur Leukocyte Esterase Urine WBC (Auto) Urine RBC (Auto) Urine Bacteria (Auto) Squamous Epi Cells Auto Urine Mucus (Auto) Urine Ascorbic Acid Influenza A (Rapid) Influenza B (Rapid) Impressions: Chest X-Ray 06/15/16 10:20 IMPRESSION: Nasogastric tube in good positioning. Plan Discharge Plan: [facility]
--- NOTE | 2016-06-15 14:01 | XCELERA REPORT ---
[address] [address] Transthoracic Echocardiogram Report Name: JUS ERICKSON Age: 71 yrs Gender: Female : 1945 Patient Status: Inpatient Patient Location: ICU\S\601\S\A Study Date: 06/15/2016 09:34 AM Height: 62 in Weight: 144 lb BSA: 1.7 m2 Procedure: A two-dimensional transthoracic echocardiogram with color flow and Doppler was performed in limited views only. Study Quality: Fair. Reason For Study: CHF / Sepsis. History: CHF. SEPSIS. Ordering Physician: DARCIE JACKSON Performed By: Michael Hernandez Interpretation Summary The left ventricle is mildly dilated. There is normal left ventricular wall thickness. LV EF is 30% Left ventricular systolic function is severely reduced. LV diastolic function could not be adequately assessed. There is severe global hypokinesis of the left ventricle. There is no thrombus. The left atrium is mildly dilated. There is moderate mitral leaflet calcification. There is no evidence of mitral valve prolapse. There is no mitral valve stenosis. There is a mild amount of mitral regurgitation The aortic valve is trileaflet. There is no aortic valve stenosis There is no LVOT obstruction. There is Aortic Sclerosis , wiyhout Stenosis. There is no tricuspid stenosis. There is a trace amount of tricuspid regurgitation Right ventricular systolic pressure is normal. RVSP is 28 mm of Hg , with RVSp of 28 mm of Hg , with RA mean of 10. There is a mild amount of pulmonic regurgitation There is no pericardial effusion. MMode/2D Measurements \T\ Calculations RVDd: 2.7 cm LVIDd: 5.6 cm FS: 16.2 % Ao root diam: IVSd: 1.1 cm LVIDs: 4.7 cm EDV(Teich): 2.8 cm LVPWd: 1.1 cm 154.3 ml Ao root area: ESV(Teich): 102.4 ml 6.3 cm2 EF(Teich): 33.6 % LA dimension: 4.3 cm LVLd ap4: 7.8 cm SV(MOD-sp4): EDV(MOD-sp4): 48.0 ml 139.0 ml LVLs ap4: 7.6 cm ESV(MOD-sp4): 91.0 ml EF(MOD-sp4): 34.5 % Doppler Measurements \T\ Calculations MV E max shahriar: MV P1/2t max shahriar: Ao V2 max: LV V1 max P.6 cm/sec 110.2 cm/sec 193.3 cm/sec 2.0 mmHg MV A max shahriar: MV P1/2t: 47.9 msec Ao max PG: LV V1 max: 105.8 cm/sec MVA(P1/2t): 4.6 cm2 14.9 mmHg 70.7 cm/sec MV E/A: 1.0 MV dec slope: 673.8 cm/sec2 MV dec time: 0.16 sec PA V2 max: PI end-d shahriar: TR max shahriar: RAP systole: 95.4 cm/sec 108.6 cm/sec 213.9 cm/sec 10.0 mmHg PA max P.6 mmHg TR max P.3 mmHg RVSP(TR): 28.3 mmHg Left Ventricle The left ventricle is mildly dilated. There is normal left ventricular wall thickness. LV EF is 30%. Left ventricular systolic function is severely reduced. LV diastolic function could not be adequately assessed. There is severe global hypokinesis of the left ventricle. There is no thrombus. There is no ventricular septal defect visualized. Right Ventricle The right ventricle is normal in size and function. Atria The right atrium is normal. The left atrium is mildly dilated. The interatrial septum is intact with no evidence for an atrial septal defect. Mitral Valve There is moderate mitral leaflet calcification. There is no evidence of mitral valve prolapse. There is no vegetation seen on the mitral valve. There is no mitral valve stenosis. There is a mild amount of mitral regurgitation. Aortic Valve The aortic valve is trileaflet. The aortic valve opens well. There is no aortic valvular vegetation. There is no aortic valve stenosis. There is no LVOT obstruction. There is Aortic Sclerosis , wiyhout Stenosis. Tricuspid Valve There is no tricuspid stenosis. There is a trace amount of tricuspid regurgitation. Right ventricular systolic pressure is normal. RVSP is 28 mm of Hg , with RVSp of 28 mm of Hg , with RA mean of 10. Pulmonic Valve There is no pulmonic valvular stenosis. There is a mild amount of pulmonic regurgitation. Great Vessels The aortic root is normal size. Effusions There is no pericardial effusion. : DARCIE JACKSON > Bryanna Jones
[2016-06-15] MEDS ORDERED: ATORVASTATIN CALCIUM 80 MG TABLET PO ONE (14:20)
[2016-06-15] MEDS ORDERED: ENOXAPARIN SODIUM INJ 40 MG/0.4 ML DISP.SYRIN SUBCUT ONE (14:30)
[2016-06-15] MEDS ORDERED: ASPIRIN 81 MG TABLET, CHEWABLE ONE (14:38)
[2016-06-15] MEDS ORDERED: ASPIRIN 81 MG TABLET, CHEWABLE PO ONE (14:45)
[2016-06-15] MEDS ORDERED: ASPIRIN 325 MG TABLET, ENT COATED PO ONE (15:00)
[2016-06-15] MEDS ORDERED: ASPIRIN 81 MG TABLET, ENT COATED PO SCH (15:00)
[2016-06-15] MEDS ORDERED: ENOXAPARIN SODIUM INJ 40 MG/0.4 ML DISP.SYRIN SUBCUT SCH ×2 (18:00→22:00)
[2016-06-15 18:52] VITALS: BP 101/47
[2016-06-16] MEDS ORDERED: ASPIRIN 325 MG TABLET, ENT COATED PO SCH (10:00)
[2016-06-16] MEDS ORDERED: ASPIRIN 81 MG TABLET, CHEWABLE PO SCH (10:00)
[2016-06-16] MEDS ORDERED: LEVOFLOXACIN 750 MG/D5W RTU 750 MG/150 ML RTUPB IV SCH (18:00)
== END 2016-06-15 19:20 | disposition short-term general hospital (02) | DRG 871 ==
LOC: ER 16:25 → EH 18:33 → UNDOADMIN 18:33 → EH 21:22 → ICU 21:22 → EH 22:16 → ICU 22:16
PROVIDERS: ADMIT Emergency Medicine; ATTEND Emergency Medicine
PROC: 0BH17EZ Insertion of Endotracheal Airway into Trachea, Via Natural or Artificial Opening (ICD-10-PCS; principal; 2016-06-14)
PROC: 5A1935Z Respiratory Ventilation, Less than 24 Consecutive Hours (ICD-10-PCS; 2016-06-14)
PROC: 05HM33Z Insertion of Infusion Device into Right Internal Jugular Vein, Percutaneous Approach (ICD-10-PCS; 2016-06-14)
PROC: B543ZZA Ultrasonography of Right Jugular Veins, Guidance (ICD-10-PCS; 2016-06-14)
DX: A41.9 Sepsis, unspecified organism (principal); J18.9 Pneumonia, unspecified organism; J96.00 Acute respiratory failure, unspecified whether with hypoxia or hypercapnia; I42.9 Cardiomyopathy, unspecified; I12.9 Hypertensive chronic kidney disease with stage 1 through stage 4 chronic kidney disease, or unspecified chronic kidney disease; I87.2 Venous insufficiency (chronic) (peripheral); Z78.1 Physical restraint status; I50.9 Heart failure, unspecified; J44.9 Chronic obstructive pulmonary disease, unspecified; R65.20 Severe sepsis without septic shock; I25.10 Atherosclerotic heart disease of native coronary artery without angina pectoris; N18.3 Chronic kidney disease, stage 3 (moderate); I25.5 Ischemic cardiomyopathy; E83.51 Hypocalcemia; D50.9 Iron deficiency anemia, unspecified; Z88.7 Allergy status to serum and vaccine; Z88.6 Allergy status to analgesic agent; Z90.710 Acquired absence of both cervix and uterus; Z90.11 Acquired absence of right breast and nipple
CPT/HCPCS: 36415; 36600; 71010; 80048; 80053; 81001; 82306; 82550; 82553; 82652; 82803; 82962; 83605; 83880; 84439; 84443; 84478; 84484; 85025; 85610; 85652; 86140; 87040; 87086; 87804; 93005; 93010; 93306; 94002; 94003; 94640; C1751; C1769; J0330; J0610; J0696; J1642; J1650; J1940; J1956; J2020; J2060; J2250; J2543; J2704; J3490; J7030

== ENCOUNTER → 2016-07-01 | Outpatient (CLI) | payer MEDICARE, OTHER ==
[2016-07-01 12:17] LABS: ABSOLUTE BASOPHILS # (AUTO) 0.2 10^3/uL (0.0-0.2); ABSOLUTE EOSINOPHILS # (AUTO) 0.2 10^3/uL (0.0-0.6); ABSOLUTE MONOCYTES (AUTO) 1.2 10^3/uL (0.1-1.4); ABSOLUTE NEUT (AUTO) 8.9 10^3/uL (1.7-8.2); BASOPHILS % (AUTO) 1.3 % (0-2); EOSINOPHILS % (AUTO) 1.9 % (0-6); HEMATOCRIT 31.3 % (36.0-47.0); HEMOGLOBIN 10.2 g/dL (12.0-15.5); HGB HCT DIFFERENCE -0.7; MEAN CORPUSCULAR HEMOGLOBIN 24.8 pg (27.0-33.4); MEAN CORPUSCULAR HGB CONC 32.4 g/dL (32.0-36.0); MEAN CORPUSCULAR VOLUME 76 fl (80-97); MONOCYTES % (AUTO) 9.4 % (3-13); RED CELL DISTRIBUTION WIDTH 17.9 % (11.5-14.0); SEGMENTED NEUTROPHILS % (AUTO) 71.4 % (42-78); WHITE BLOOD COUNT 12.4 10^3/uL (4.0-10.5)
== END ==
LOC: OD 10:38
PROVIDERS: ATTEND Nurse Practitioner
DX: R50.9 Fever, unspecified (principal)
CPT/HCPCS: 36415; 85025; 87040

== ENCOUNTER → 2016-07-10 | Outpatient (CLI) | payer MEDICARE, OTHER ==
[2016-07-10 16:30] LABS: ABSOLUTE BASOPHILS # (AUTO) 0.1 10^3/uL (0.0-0.2); ABSOLUTE EOSINOPHILS # (AUTO) 0.2 10^3/uL (0.0-0.6); ABSOLUTE LYMPHOCYTES (AUTO) 2.1 10^3/uL (0.5-4.7); ABSOLUTE NEUT (AUTO) 7.1 10^3/uL (1.7-8.2); BASOPHILS % (AUTO) 0.7 % (0-2); EOSINOPHILS % (AUTO) 1.6 % (0-6); HEMATOCRIT 29.6 % (36.0-47.0); HEMOGLOBIN 9.7 g/dL (12.0-15.5); HGB HCT DIFFERENCE -0.5; LYMPHOCYTES % (AUTO) 19.8 % (13-45); MEAN CORPUSCULAR HEMOGLOBIN 25.2 pg (27.0-33.4); MEAN CORPUSCULAR HGB CONC 32.9 g/dL (32.0-36.0); MEAN CORPUSCULAR VOLUME 77 fl (80-97); MONOCYTES % (AUTO) 9.3 % (3-13); RED BLOOD COUNT 3.87 10^6/uL (3.72-5.28); RED CELL DISTRIBUTION WIDTH 18.5 % (11.5-14.0); SEGMENTED NEUTROPHILS % (AUTO) 68.6 % (42-78); WHITE BLOOD COUNT 10.4 10^3/uL (4.0-10.5)
[2016-07-10 16:53] LABS: ALANINE AMINOTRANSFERASE 33 U/L (9-52); ALBUMIN 3.8 g/dL (3.5-5.0); ALKALINE PHOSPHATASE 98 U/L (38-126); ANION GAP 11 (5-19); ASPARTATE AMINO TRANSFERASE 27 U/L (14-36); BILIRUBIN,TOTAL 0.4 mg/dL (0.2-1.3); BLOOD UREA NITROGEN 19 mg/dL (7-20); CARBON DIOXIDE 28 mmol/L (22-30); CHLORIDE 101 mmol/L (98-107); CREATININE RESULT 1.18 mg/dL (0.52-1.25); GLUCOSE 92 mg/dL (75-110); SODIUM 139.8 mmol/L (137-145); TOTAL PROTEIN 6.1 g/dL (6.3-8.2)
[2016-07-10 17:02] LABS: CALCIUM 7.1 mg/dL (8.4-10.2)
== END ==
LOC: OD 15:11
PROVIDERS: ATTEND Nurse Practitioner
DX: E11.9 Type 2 diabetes mellitus without complications (principal); I42.9 Cardiomyopathy, unspecified; I50.9 Heart failure, unspecified
CPT/HCPCS: 36415; 71020; 80053; 83880; 84484; 85025

== ENCOUNTER → 2016-08-27 | Outpatient (CLI) | payer MEDICARE, OTHER | LOC: SP 12:33 | PROVIDERS: ATTEND Nurse Practitioner | DX: I65.29 Occlusion and stenosis of unspecified carotid artery (principal) | CPT/HCPCS: 93880 ==

== ENCOUNTER → 2016-09-24 | Outpatient (CLI) | payer MEDICARE, OTHER ==
--- NOTE | 2016-09-24 14:50 | RADIOLOGY REPORT (SQ) ---
EXAM DESCRIPTION: CHEST PA/LATERAL COMPLETED DATE/TIME: 09/24/2016 2:35 pm REASON FOR STUDY: HEART FAILURE, UNSPECIFIED COMPARISON: 07/10/2016. 06/14/2016. TECHNIQUE: Frontal and lateral radiographic views of the chest acquired. NUMBER OF VIEWS: Two view. LIMITATIONS: None. FINDINGS: LUNGS AND PLEURA: Increased density over the right lower lung field on the frontal view ap pears to relate to overlying asymmetric soft tissues. There is mild vascular congestion present. No significant pleural effusion. Aeration looks improved compared to 07/10/2016. MEDIASTINUM AND HILAR STRUCTURES: Chronic calcified nodes. Stable contours. HEART AND VASCULAR STRUCTURES: Stable cardiac enlargement. BONES: Osteopenic. No fracture evident. HARDWARE: None in the chest. OTHER: No other significant finding. IMPRESSION: 1. Improved aeration compared to June. Otherwise, relatively chronic appearing changes as above. TECHNICAL DOCUMENTATION: JOB ID: [id number] [employer]- All Rights Reserved
== END ==
LOC: OD 14:20
PROVIDERS: ATTEND Nurse Practitioner
DX: I50.9 Heart failure, unspecified (principal)
CPT/HCPCS: 71020

== ENCOUNTER → 2016-11-12 | Outpatient (CLI) | payer MEDICARE, OTHER ==
--- NOTE | 2016-11-12 17:06 | RADIOLOGY REPORT (SQ) ---
EXAM DESCRIPTION: CHEST PA/LATERAL COMPLETED DATE/TIME: 11/12/2016 1:03 pm REASON FOR STUDY: HEART FAILURE UNSPECIFIED COMPARISON: 09/24/2016 EXAM PARAMETERS: NUMBER OF VIEWS: two views TECHNIQUE: Digital Frontal and Lateral radiographic views of the chest acquired. RADIATION DOSE: NA LIMITATIONS: none FINDINGS: LUNGS AND PLEURA: No opacities, masses or pneumothorax. No pleural effusion. Again there is relative increased density overlying the right lower hemithorax which again is presumed to be rela myra to asymmetric soft tissues. MEDIASTINUM AND HILAR STRUCTURES: The previously described calcified lymph nodes appears stable. HEART AND VASCULAR STRUCTURES: Cardiac silhouette remains enlarged and is unchanged in configuration. BONES: No acute findings. HARDWARE: AICD device is identified in position. Surgical clips are again identified in the right ax illary region. OTHER: No other significant finding. IMPRESSION: Cardiomegaly. No acute consolidations or pleural effusions are identified. Other findi ngs as noted above TECHNICAL DOCUMENTATION: JOB ID: [id number] [employer]- All Rights Reserved
== END ==
LOC: OD 12:53
PROVIDERS: ATTEND Nurse Practitioner
DX: I50.9 Heart failure, unspecified (principal)
CPT/HCPCS: 71020

== ENCOUNTER 2017-01-06 05:36 | Day surgery (SDC) | payer MEDICARE, OTHER ==
[2017-01-02 16:15] LABS: PARTIAL THROMBOPLASTIN TIME 32.4 SEC (23.5-35.8); PROTHROMBIN TIME 15.5 SEC (11.4-15.4)
[2017-01-02 16:15] LABS: HEMATOCRIT 28.4 % (36.0-47.0); HEMOGLOBIN 9.1 g/dL (12.0-15.5); HGB HCT DIFFERENCE -1.1; MEAN CORPUSCULAR HEMOGLOBIN 20.4 pg (27.0-33.4); RED BLOOD COUNT 4.45 10^6/uL (3.72-5.28); RED CELL DISTRIBUTION WIDTH 23.4 % (11.5-14.0); WHITE BLOOD COUNT 10.5 10^3/uL (4.0-10.5)
[2017-01-02 16:26] LABS: ANION GAP 14 (5-19); BLOOD UREA NITROGEN 26 mg/dL (7-20); CALCIUM 9.1 mg/dL (8.4-10.2); CARBON DIOXIDE 24 mmol/L (22-30); CHLORIDE 97 mmol/L (98-107); CREATININE RESULT 1.62 mg/dL (0.52-1.25); GLUCOSE 177 mg/dL (75-110); POTASSIUM 3.4 mmol/L (3.6-5.0); SODIUM 135.2 mmol/L (137-145)
[2017-01-02 16:29] LABS: MEAN CORPUSCULAR VOLUME 64 fl (80-97)
--- NOTE | 2017-01-02 19:30 | EKG REPORT ---
SEVERITY:- ABNORMAL ECG - SINUS RHYTHM MULTIPLE VENTRICULAR PREMATURE COMPLEXES INCOMPLETE LEFT BUNDLE BRANCH BLOCK LVH WITH SECONDARY REPOLARIZATION ABNORMALITY ANTERIOR Q WAVES, POSSIBLY DUE TO LVH PROLONGED QT INTERVAL : Confirmed by: Amos Omalley MD 02-Jan-2017 19:29:44
[2017-01-05 14:37] LABS: PATH REVIEW PATHOLOGIST REVIEWED
[~2017-01-06 05:36] MED LIST changes: +CEFAZOLIN 1 GM/D5W RTU 1 GM/50 ML RTUPB IV PRN; +LACTATED RINGERS 1000 ML IV PRN; -SUCCINYLCHOLINE CHLORIDE INJ 200 MG/10 ML VIAL ONE
[2017-01-06 06:22] LABS: POTASSIUM 3.8 mmol/L (3.6-5.0)
[2017-01-06 06:28] LABS: PARTIAL THROMBOPLASTIN TIME 26.3 SEC (23.5-35.8)
[2017-01-06] MEDS ORDERED: SODIUM BICARBONATE 8.4% INJ 50 MEQ/50 ML DISP.SYRIN ONE (06:40)
[2017-01-06] MEDS ORDERED: LIDOCAINE 1%/EPINEPHRINE INJ 20 ML VIAL ONE (06:40)
[2017-01-06] MEDS ORDERED: ALBUTEROL SULFATE 0.083% NEB 2.5 MG/3 ML AMPUL NEB ONE (07:01)
[2017-01-06] MEDS ORDERED: FENTANYL CITRATE INJ/PF 100 MCG/2 ML AMPUL ONE (07:19)
[2017-01-06] MEDS ORDERED: MIDAZOLAM 2 MG/2 ML INJ ONE (07:19)
[2017-01-06] MEDS ORDERED: PROPOFOL INJ 200 MG/20 ML VIAL IV ONE (07:20)
[2017-01-06] MEDS ORDERED: PROMETHAZINE HCL INJ 25 MG/1 ML VIAL IV PRN ×2 (08:01)
[2017-01-06] MEDS ORDERED: FENTANYL CITRATE INJ/PF 100 MCG/2 ML AMPUL IV PRN ×3 (08:01)
[2017-01-06] MEDS ORDERED: DIPHENHYDRAMINE HCL 50 MG/ML VIAL IV PRN (08:01)
--- NOTE | 2017-01-06 09:06 | Operative Report ---
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 Patient was brought into the operating room and placed on the operating room table in a supine position. Patient was then prepped with a Betadine scrub and Betadine solution and draped in a sterile and aseptic manner. The area was then marked. 12 O'clock was marked towards the elbow 3 O'clock was marked towards the volar side of the forearm 6:00 was marked towards the wrist 9:00 was marked towards the dorsal side of the forearm The area was then anesthetized with 1% lidocaine with epinephrine and bicarbonate for its anesthetic and hemostatic effects. The area was then excised and marked at 12:00. The specimen was sent for frozen section. The results came back that the deep and lateral margins were free. We had considered a primary closure but this would go against the natural relaxed skin tension lines. A primary closure would be too tight and would have increased chance of dehiscence. This will leave more of a scar so we decided to use a rotation flap reconstruction which would camouflage the scar better and take tension off of the closure so that would be less chances of complications. The skin was very frail and every suture had to be placed with complete accuracy and to minimize any tearing of the tissue. Then we went ahead and outlined the flap and anesthetized it. Then incised the flap and developed a flap maintaining the subdermal plexus. Then we undermined 360 to allow for plate like scarring and minimize trap door deformity. Throughout the case hemostasis was achieved with the bipolar. We then sutured the flap into its new position using 4-0 Vicryl for the subcutaneous and deep dermis. Skin was closed with a running subcuticular suture stitch using 4-0 PDS with knots being tied on the outside. And 4-0 PDS suture was used for support and placed in the central area of the incision. We then applied tincture benzoin and Steri-Strips followed by a light pressure dressing. Patient was then reversed from anesthesia and taken to the [facility] for recovery. The patient tolerated well. There were no complications. Lesion size was approximately 1.3 x 1.3 cm please see pathology for actual size. Portions of this note may be dictated using [employer] voice recognition software. Occasional variations and spelling and vocabulary could be possible and are unintentional. Additionally, there is a chance that some errors may not be caught or corrected. Please notify the offer of any discrepancies noted or if any statements are unclear. Subjective: No complaints Objective: Vital signs stable afebrile No bleeding Dressing intact Assessment and plan: Doing well. Elevate the operative site. Resume medications. Take antibiotics for 1 day Follow-up Full instructions were given to the patient and family and they understand Portions of this note may be dictated using [employer] voice recognition software. Occasional variations and spelling and vocabulary could be possible and are unintentional. Additionally, there is a chance that some errors may not be caught or corrected. Please notify the offer of any discrepancies noted or if any statements are unclear.
--- NOTE | 2017-01-06 09:08 | PDOC DISCHARGE SUMMARY ---
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 Leave the steri-strip tapes on for 5 days, then removal. Then cleaning wound with peroxide and apply Neosporin/bacitracin 3 times per day. Antibiotics for 1 day, then discontinue. Elevate operative area to decrease swelling. Do not strain, or lift heavy objects. Call for excessive bleeding, increased temperature of 101, uncontrolled pain, or excessive nausea or vomiting. You may reach Dr. Boss through his office at [phone]. In the event of an emergency after hours, then contact Dr. Boss through [facility]. Return to the office for a postop check on . The time will be scheduled by the nursing staff of [facility] prior to discharge. Please give the patient a copy of their labs and EKG so they can bring this to their PMD. Thank you Portions of this note may be dictated using [employer] voice recognition software. Occasional variations and spelling and vocabulary could be possible and are unintentional. Additionally, there is a chance that some errors may not be caught or corrected. Please notify the offer of any discrepancies noted or if any statements are unclear. Referrals: DENIS LÓPEZ NP-C [Primary Care Provider] - Discharge Diet: As Tolerated Discharge Activity: Activity As Tolerated - Keep arm elevated. Limited activities.
[2017-01-06 11:22] VITALS: BP 136/65
== END 2017-01-06 11:25 | disposition home or self-care (01) ==
LOC: OROUT 05:36
PROVIDERS: ATTEND Plastic Surgery
PROC: 0HBEXZZ Excision of Left Lower Arm Skin, External Approach (ICD-10-PCS; principal; 2017-01-06 07:30)
DX: C44.629 Squamous cell carcinoma of skin of left upper limb, including shoulder (principal); J44.9 Chronic obstructive pulmonary disease, unspecified; E11.9 Type 2 diabetes mellitus without complications; I13.10 Hypertensive heart and chronic kidney disease without heart failure, with stage 1 through stage 4 chronic kidney disease, or unspecified chronic kidney disease; E11.22 Type 2 diabetes mellitus with diabetic chronic kidney disease; N18.2 Chronic kidney disease, stage 2 (mild); I25.10 Atherosclerotic heart disease of native coronary artery without angina pectoris; D64.9 Anemia, unspecified; F17.210 Nicotine dependence, cigarettes, uncomplicated; Z79.01 Long term (current) use of anticoagulants; Z79.899 Other long term (current) drug therapy; Z88.5 Allergy status to narcotic agent; Z79.51 Long term (current) use of inhaled steroids; Z79.84 Long term (current) use of oral hypoglycemic drugs
CPT/HCPCS: 93005; 36415 ×2; 82947; 84132; 85027; 85610 ×2; 85730 ×2; 80048; 88305 ×2; 88331 ×2; 93010; 14020; J2250; J0690; J3490 ×2; J2704; A9270; 400; J3010

== ENCOUNTER → 2017-01-28 | Outpatient (CLI) | payer MEDICARE, OTHER ==
--- NOTE | 2017-01-28 14:32 | RADIOLOGY REPORT (SQ) ---
EXAM DESCRIPTION: CT HEAD WITHOUT COMPLETED DATE/TIME: 01/28/2017 1:55 pm REASON FOR STUDY: DIZZINESS (R42) R42 DIZZINESS AND GIDDINESS COMPARISON: None. TECHNIQUE: Axial images acquired through the brain without intravenous contrast. Images reviewed wi th bone, brain and subdural windows. Images stored on PACS. All CT scanners at this facility use dose modulation, iterative reconstruction, and/or weight based d osing when appropriate to reduce radiation dose to as low as reasonably achievable (ALARA). [facility]: Dose Right [facility]: CareDose [facility]: Dose Right [facility]: Teradose 4D [facility]: C8 Medi[employer]ensors RADIATION DOSE: Up-to-date CT equipment and radiation dose reduction techniques were employed. CTDIv ol: 49.0 mGy. DLP: 783 mGy-cm. mGy. LIMITATIONS: Mild motion artifact. FINDINGS: VENTRICLES: Normal size and contour. CEREBRUM: No masses. No hemorrhage. No midline shift. No evidence for acute infarction. Normal gra y/white matter differentiation. No areas of low density in the white matter. CEREBELLUM: No masses. No hemorrhage. No alteration of density. No evidence for acute infarction. EXTRAAXIAL SPACES: No fluid collections. No masses. ORBITS AND GLOBE: No intra- or extraconal masses. Normal contour of globe without masses. CALVARIUM: No fracture. PARANASAL SINUSES: No fluid or mucosal thickening. SOFT TISSUES: No mass or hematoma. OTHER: Heavily calcified intracranial vertebral arteries and intracranial parasellar carotid arteries . IMPRESSION: INTRACRANIAL ATHEROSCLEROTIC VASCULAR CHANGES. OTHERWISE, NORMAL BRAIN CT WITHOUT CONTRAST. EVIDENCE OF ACUTE STROKE: NO. COMMENT: Quality ID # [id number]: Final reports with documentation of one or more dose reduction techniques (e.g., Automated exposure control, adjustment of the mA and/or kV according to patient size, use of iterative reconstruction technique) TECHNICAL DOCUMENTATION: JOB ID: [id number] [employer]- All Rights Reserved
--- NOTE | 2017-01-28 14:49 | RADIOLOGY REPORT (SQ) ---
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 NUMBER OF VIEWS: Five views including obliques. TECHNIQUE: AP, lateral, oblique, and sacral radiographic images acquired of the lumbar spine. LIMITATIONS: None. FINDINGS: MINERALIZATION: Osteopenia. SEGMENTATION: Normal. No transitional anatomy. ALIGNMENT: Convex left scoliosis. Minimal L2-3 retrolisthesis. VERTEBRAE: Maintained height. No fracture or worrisome bone lesion. DISCS: Disc space narrowing, most pronounced at L3-4. POSTERIOR ELEMENTS: Pedicles and facets are intact. No pars defect or posterior arch defects. Facet arthropathy is present. HARDWARE: None in the spine. PARASPINAL SOFT TISSUES: Dense aortic atherosclerotic calcification. PELVIS: Intact as visualized. No fractures or worrisome bone lesions. SI joints intact. OTHER: No other significant finding. IMPRESSION: Osteopenia. Spondylosis. No fracture or bone lesion evident. TECHNICAL DOCUMENTATION: JOB ID: [id number]- All Rights Reserved
== END ==
LOC: RAD 13:33
PROVIDERS: ATTEND Nurse Practitioner
DX: R42 Dizziness and giddiness (principal); M48.061 Spinal stenosis, lumbar region without neurogenic claudication
CPT/HCPCS: 70450; 72110

== ENCOUNTER 2017-05-12 08:34 | Day surgery (SDC) | payer MEDICARE, OTHER ==
[2017-05-06 12:56] LABS: HEMATOCRIT 32.7 % (36.0-47.0); HEMOGLOBIN 10.8 g/dL (12.0-15.5); MEAN CORPUSCULAR HEMOGLOBIN 23.4 pg (27.0-33.4); MEAN CORPUSCULAR VOLUME 71 fl (80-97); PLATELET COUNT 227 10^3/uL (150-450); RED BLOOD COUNT 4.61 10^6/uL (3.72-5.28); RED CELL DISTRIBUTION WIDTH 24.2 % (11.5-14.0); WHITE BLOOD COUNT 9.8 10^3/uL (4.0-10.5)
[2017-05-06 12:58] LABS: INTERNATIONAL RATION (INR) 1.14; PROTHROMBIN TIME 15.4 SEC (11.4-15.4)
[2017-05-06 12:59] LABS: PARTIAL THROMBOPLASTIN TIME 33.2 SEC (23.5-35.8)
[2017-05-06 13:12] LABS: ANION GAP 12 (5-19); BLOOD UREA NITROGEN 28 mg/dL (7-20); CALCIUM 11.4 mg/dL (8.4-10.2); CARBON DIOXIDE 32 mmol/L (22-30); CHLORIDE 98 mmol/L (98-107); GLUCOSE 103 mg/dL (75-110); POTASSIUM 3.9 mmol/L (3.6-5.0)
--- NOTE | 2017-05-06 13:39 | EKG REPORT ---
SEVERITY:- ABNORMAL ECG - SINUS RHYTHM PROBABLE LEFT ATRIAL ABNORMALITY NONSPECIFIC INTRAVENTRICULAR CONDUCTION DELAY LVH WITH SECONDARY REPOLARIZATION ABNORMALITY ANTERIOR Q WAVES, POSSIBLY DUE TO LVH : Confirmed by: Amos Omalley MD 06-May-2017 13:38:55
[2017-05-12] MEDS ORDERED: LIDOCAINE 2%/EPINEPHRINE INJ 20 ML VIAL ONE (09:25)
[2017-05-12] MEDS ORDERED: SODIUM BICARBONATE 8.4% INJ 50 MEQ/50 ML DISP.SYRIN ONE (09:25)
[2017-05-12 09:44] LABS: POTASSIUM 3.6 mmol/L (3.6-5.0)
[2017-05-12] MEDS ORDERED: FENTANYL CITRATE INJ/PF 100 MCG/2 ML AMPUL ONE (09:45)
[2017-05-12] MEDS ORDERED: PROPOFOL INJ 200 MG/20 ML VIAL IV ONE (09:45)
[2017-05-12] MEDS ORDERED: MIDAZOLAM 2 MG/2 ML INJ ONE (09:45)
[2017-05-12 09:47] LABS: INTERNATIONAL RATION (INR) 1.01
[2017-05-12] MEDS ORDERED: FENTANYL CITRATE INJ/PF 100 MCG/2 ML AMPUL IV PRN ×3 (10:27)
[2017-05-12] MEDS ORDERED: DIPHENHYDRAMINE HCL 50 MG/ML VIAL IV PRN (10:27)
[2017-05-12] MEDS ORDERED: ONDANSETRON HCL INJ/PF 4 MG/2 ML SDV IV PRN (10:27)
--- NOTE | 2017-05-12 11:35 | Operative Report ---
Operative Report DATE OF SURGERY: 05/12/17 PREOPERATIVE DIAGNOSIS: Squamous cell carcinoma of the right proximal forearm POSTOPERATIVE DIAGNOSIS: Same OPERATION: Excision of squamous cell carcinoma of the right proximal dorsal forearm with frozen section margin control and reconstruction with a rotation flap SURGEON: BRITTNEY KNOX ANESTHESIA: LMAC TISSUE REMOVED OR ALTERED: Squamous cell carcinoma COMPLICATIONS: None ESTIMATED BLOOD LOSS: Minimal PROCEDURE: Patient seen and was marked prior to being brought into the operating room. Patient was brought into the operating room and placed on the operating room table in a supine position. Patient was then prepped with a Betadine scrub and Betadine solution and draped in a sterile and aseptic manner. The area was then marked. 12 O'clock was marked towards the elbow 3 O'clock was marked towards the radial side 6:00 was marked towards the wrist 9:00 was marked towards the ulnar side The area was then anesthetized with 2% lidocaine with epinephrine and bicarbonate for its anesthetic and hemostatic effects. The area was then excised and marked at 12:00. The specimen was sent for frozen section. The results came back that the deep and lateral margins were free. We had considered a primary closure but this would go against the natural relaxed skin tension lines. A primary closure would be too tight and would have increased chance of dehiscence. Patient's skin was very fragile and a flap was needed that would cause the least amount of tension with the reconstruction. Other choices would leave more of a scar so we decided to use a rotation flap reconstruction which would camouflage the scar better and take tension off of the closure so that would be less chances of complications. Then went ahead and outlined the flap and anesthetized it. Then incised the flap and developed a flap maintaining the subdermal plexus. Then we undermined 360 to allow for plate like scarring and minimize trap door deformity. Throughout the case hemostasis was achieved with the bipolar. We then sutured the flap into its new position using 4-0 Vicryl for the subcutaneous and deep dermis. Skin was closed with a running subcuticular suture stitch using 4-0 PDS with knots being tied on the outside. And 4-0 PDS suture was used for support and placed in the central area of the incision. We then applied tincture benzoin and Steri-Strips followed by a light pressure dressing. Patient was then reversed from anesthesia and taken to the [facility] for recovery. The patient tolerated well. There were no complications. Lesion size was approximately 1.1 x 1.1 cm please see pathology for actual size. Portions of this note may be dictated using [employer] voice recognition software. Occasional variations and spelling and vocabulary could be possible and are unintentional. Additionally, there is a chance that some errors may not be caught or corrected. Please notify the author of any discrepancies noted or if any statements are unclear. Subjective: No complaints Objective: Vital signs stable afebrile No bleeding Dressing intact Assessment and plan: Doing well. Elevate the operative site. Resume medications. Take antibiotics for 1 day Follow-up Full instructions were given to the patient and family and they understand Portions of this note may be dictated using [employer] voice recognition software. Occasional variations and spelling and vocabulary could be possible and are unintentional. Additionally, there is a chance that some errors may not be caught or corrected. Please notify the offer of any discrepancies noted or if any statements are unclear.
--- NOTE | 2017-05-12 11:37 | PDOC DISCHARGE SUMMARY ---
Discharge Summary (SDC) - Discharge Final Diagnosis: Squamous cell carcinoma of the right proximal dorsal forearm Date of Surgery: 05/12/17 Condition: Good Treatment or Instructions: Leave the top dressing on for 2 days, then removed. Leave the steri-strip tapes on for 5 days, then removal. Then cleaning wound with peroxide and apply Neosporin/bacitracin 3 times per day. Antibiotics for 1 day, then discontinue. Elevate operative area to decrease swelling. Do not strain, or lift heavy objects. Call for excessive bleeding, increased temperature of 101, uncontrolled pain, or excessive nausea or vomiting. You may reach Dr. Boss through his office at [phone]. In the event of an emergency after hours, then contact Dr. Boss through [facility]. Return to the office for a postop check on . The time will be scheduled by the nursing staff of [facility] prior to discharge. Please give the patient a copy of their labs and EKG so they can bring this to their PMD. Thank you Portions of this note may be dictated using [employer] voice recognition software. Occasional variations and spelling and vocabulary could be possible and are unintentional. Additionally, there is a chance that some errors may not be caught or corrected. Please notify the offer of any discrepancies noted or if any statements are unclear. Referrals: DENIS LÓPEZ NP-C [Primary Care Provider] - Discharge Diet: As Tolerated Report the Following to Your Physician Immediately: Unusual Bleeding - Keep arm elevated. Do not do any excessive flexion or extension.
[2017-05-12] MEDS: FLUMAZENIL INJ 0.5 MG/5 ML VIAL ONE ×3 (12:44→12:55)
[2017-05-12 17:46] VITALS: BP 147/68
== END 2017-05-12 15:25 | disposition home or self-care (01) ==
LOC: OROUT 08:34
PROVIDERS: ATTEND Plastic Surgery
PROC: 0HBDXZZ Excision of Right Lower Arm Skin, External Approach (ICD-10-PCS; 2017-05-12)
PROC: 0HXDXZZ Transfer Right Lower Arm Skin, External Approach (ICD-10-PCS; principal; 2017-05-12 10:30)
DX: C44.622 Squamous cell carcinoma of skin of right upper limb, including shoulder (principal); E11.9 Type 2 diabetes mellitus without complications; F17.210 Nicotine dependence, cigarettes, uncomplicated; I50.9 Heart failure, unspecified; D64.9 Anemia, unspecified; J44.9 Chronic obstructive pulmonary disease, unspecified; I25.2 Old myocardial infarction; Z85.3 Personal history of malignant neoplasm of breast; Z79.84 Long term (current) use of oral hypoglycemic drugs; Z79.899 Other long term (current) drug therapy; Z79.51 Long term (current) use of inhaled steroids; Z88.5 Allergy status to narcotic agent; Z79.891 Long term (current) use of opiate analgesic; Z88.7 Allergy status to serum and vaccine; Z95.0 Presence of cardiac pacemaker
CPT/HCPCS: 93005; 36415 ×2; 82962; 82947; 84132; 85027; 85610 ×2; 85730 ×2; 80048; 88305 ×2; 88331 ×2; 93010; 94640; 14020; J3490 ×3; J2250; J0690; J2704; 400; J3010

== ENCOUNTER → 2017-07-30 | Outpatient (CLI) | payer MEDICARE, OTHER ==
[2017-07-30 15:56] LABS: ABSOLUTE BASOPHILS # (AUTO) 0.1 10^3/uL (0.0-0.2); ABSOLUTE EOSINOPHILS # (AUTO) 0.2 10^3/uL (0.0-0.6); ABSOLUTE MONOCYTES (AUTO) 1.1 10^3/uL (0.1-1.4); ABSOLUTE NEUT (AUTO) 7.3 10^3/uL (1.7-8.2); BASOPHILS % (AUTO) 0.7 % (0-2); EOSINOPHILS % (AUTO) 2.2 % (0-6); HEMATOCRIT 29.8 % (36.0-47.0); HEMOGLOBIN 9.6 g/dL (12.0-15.5); LYMPHOCYTES % (AUTO) 18.9 % (13-45); MEAN CORPUSCULAR HEMOGLOBIN 22.6 pg (27.0-33.4); MEAN CORPUSCULAR HGB CONC 32.2 g/dL (32.0-36.0); MEAN CORPUSCULAR VOLUME 70 fl (80-97); MONOCYTES % (AUTO) 10.1 % (3-13); PLATELET COUNT 254 10^3/uL (150-450); RED BLOOD COUNT 4.26 10^6/uL (3.72-5.28); RED CELL DISTRIBUTION WIDTH 20.7 % (11.5-14.0); SEGMENTED NEUTROPHILS % (AUTO) 68.1 % (42-78); TOTAL CELLS COUNTED % (AUTO) 100 %; WHITE BLOOD COUNT 10.7 10^3/uL (4.0-10.5)
[2017-07-30 16:16] LABS: ALANINE AMINOTRANSFERASE 39 U/L (9-52); ALKALINE PHOSPHATASE 62 U/L (38-126); ANION GAP 9 (5-19); ASPARTATE AMINO TRANSFERASE 34 U/L (14-36); BILIRUBIN,DIRECT 0.4 mg/dL (0.0-0.4); BILIRUBIN,TOTAL 0.4 mg/dL (0.2-1.3); BLOOD UREA NITROGEN 39 mg/dL (7-20); CALCIUM 11.8 mg/dL (8.4-10.2); CARBON DIOXIDE 29 mmol/L (22-30); CHLORIDE 102 mmol/L (98-107); GLUCOSE 129 mg/dL (75-110); POTASSIUM 3.9 mmol/L (3.6-5.0); SODIUM 140.4 mmol/L (137-145); TOTAL PROTEIN 6.5 g/dL (6.3-8.2)
== END ==
LOC: OD 14:29
PROVIDERS: ATTEND Nurse Practitioner
DX: E11.9 Type 2 diabetes mellitus without complications (principal); E78.2 Mixed hyperlipidemia; J44.9 Chronic obstructive pulmonary disease, unspecified; M19.90 Unspecified osteoarthritis, unspecified site; I50.9 Heart failure, unspecified
CPT/HCPCS: 36415; 80053; 82728; 83036; 83735; 83880; 85025

== ENCOUNTER 2017-10-05 19:49 | Observation (INO) | payer MEDICARE, OTHER ==
--- NOTE | 2017-10-05 20:18 | ER Document Report ---
ED General - General Chief Complaint: Weakness Stated Complaint: ABNORMAL LAB RESULTS Time Seen by Provider: 10/05/17 20:17 Mode of Arrival: Ambulatory Information source: Patient TRAVEL OUTSIDE OF THE [place] IN LAST 30 DAYS: No - HPI Onset: Last week Onset/Duration: Gradual Quality of pain: Other - GENERALIZED, CHRONIC Severity: Moderate Associated symptoms: Nausea, Shortness of breath, Other - DECREASED URINE OUTPUT , DYSPHAGIA Exacerbated by: Other - ANY ACTIVITY Relieved by: Other - REST Similar symptoms previously: No Recently seen / treated by doctor: Yes - PCP, TODAY, REFERRED TO E.D. - Related Data Allergies/Adverse Reactions: acetaminophen [From Percocet] Allergy (Intermediate, Verified 05/06/17 11:31) Hives oxycodone [From Percocet] Allergy (Intermediate, Verified 05/06/17 11:31) Hives codeine [Codeine] Allergy (Mild, Verified 05/06/17 11:31) feels out of control Tetanus Vaccines and Toxoid [Tetanus] Allergy (Unknown, Verified 05/06/17 11:31) arm swell at injection site Past Medical History - General Information source: Patient - Social History Smoking Status: Current Every Day Smoker Cigarette use (# per day): Yes Chew tobacco use (# tins/day): No Smoking Education Provided: No Frequency of alcohol use: Rare Drug Abuse: None Lives with: Family Family History: Reviewed & Not Pertinent Patient has suicidal ideation: No Patient has homicidal ideation: No - Past Medical History Cardiac Medical History: Reports: Hx Coronary Artery Disease, Hx Hypertension - medicated, Hx Peripheral Vascular Disease - S/P ANGIOPLASTY & STENTS, ON ELIQUIS Denies: Hx Heart Attack - POSSIBLY PER PT ?silent [place] Pulmonary Medical History: Reports: Hx Bronchitis - was tx 01/16 with solumedrol & Z pack for suspected bronchitis, Hx COPD, Hx Pneumonia - 2006 Denies: Hx Asthma EENT Medical History: Reports: None Neurological Medical History: Reports: None. Denies: Hx Cerebrovascular Accident, Hx Seizures Endocrine Medical History: Reports: None Renal/ Medical History: Reports: Hx Renal Insufficiency. Denies: Hx Peritoneal Dialysis Malignancy Medical History: Reports: None GI Medical History: Reports: None. Denies: Hx Hepatitis, Hx Hiatal Hernia, Hx Ulcer Musculoskeltal Medical History: Reports Hx Arthritis - OSTEO Psychiatric Medical History: Reports: Hx Depression Infectious Medical History: Denies: Hx Hepatitis Past Surgical History: Reports: Hx Hysterectomy, Hx Mastectomy - right breast/ restrictions to rt arm. Denies: Hx Open Heart Surgery, Hx Pacemaker - Immunizations Hx Diphtheria, Pertussis, Tetanus Vaccination: No - has swelling at site Hx Pneumococcal Vaccination: 12/29/16 Review of Systems - Review of Systems Constitutional: See HPI EENT: No symptoms reported Cardiovascular: See HPI Respiratory: See HPI Gastrointestinal: See HPI Genitourinary: See HPI Female Genitourinary: Post menopausal Musculoskeletal: No symptoms reported Skin: No symptoms reported Neurological/Psychological: See HPI -: Yes All other systems reviewed and negative Physical Exam - Vital signs Vitals: Temp Pulse Resp BP Pulse Ox 98.3 F 58 L 18 125/46 L 98 10/05/17 20:04 10/05/17 20:04 10/05/17 20:04 10/05/17 20:04 10/05/17 20:04 Interpretation: Bradycardic. No: Hypotensive, Hypoxic, Tachypneic - General General appearance: Appears well, Alert In distress: None - HEENT Head: Normocephalic Eyes: Pale conjunctiva Ears: Normal Nasal: Normal Mouth/Lips: Normal Mucous membranes: Normal Pharynx: Normal Neck: Normal - Respiratory Respiratory status: No respiratory distress Breath sounds: Other - DECREASED, ALL PATTERSON - Cardiovascular Rhythm: Regular Heart sounds: Normal auscultation Murmur: No - Abdominal Inspection: Normal Distension: No distension Bowel sounds: Normal - Rectal Tenderness: No Stool: Other - SOFT BROWN Hemorrhoids: External - Back Back: Normal - Extremities General upper extremity: Normal inspection General lower extremity: Normal inspection - Neurological Neuro grossly intact: Yes Cognition: Normal Orientation: AAOx4 - Psychological Associated symptoms: Normal affect, Normal mood - Skin Skin Temperature: Warm Skin Moisture: Dry Skin Color: Normal Skin Turgor: Elastic Course - Vital Signs Vital signs: Temp Pulse Resp BP Pulse Ox 98.3 F 58 L 18 125/46 L 98 10/05/17 20:04 10/05/17 20:04 10/05/17 20:04 10/05/17 20:04 10/05/17 20:04 - Laboratory Result Diagrams: 10/05/17 20:38 10/05/17 20:38 Laboratory results interpreted by me: 10/05/17 10/05/17 10/05/17 20:38 20:38 20:38 WBC 14.2 H RBC 3.34 L Hgb 6.8 L Hct 21.3 L MCV 64 L MCH 20.4 L RDW 20.6 H Absolute Neutrophils 10.9 H PT 17.2 H Sodium 130.7 L Chloride 96 L BUN 45 H Creatinine 2.60 H Est GFR ( Amer) 22 L Est GFR (Non-Af Amer) 18 L Glucose 132 H Calcium 6.9 L* Total Protein 5.9 L Albumin 3.4 L Crossmatch 10/05/17 21:10 WBC RBC Hgb Hct MCV MCH RDW Absolute Neutrophils PT Sodium Chloride BUN Creatinine Est GFR ( Amer) Est GFR (Non-Af Amer) Glucose Calcium Total Protein Albumin Crossmatch See Detail - Consults DR. MCKEON Time consulted: 22:30 Consulted provider: will come to ER Discharge - Discharge Clinical Impression: Hypocalcemia, CKD (chronic kidney disease), stage III Anemia Qualifiers: Anemia type: unspecified type Qualified Code(s): D64.9 - Anemia, unspecified Condition: Good Disposition: ADMITTED OBSERVATION Admitting Provider: Hospitalist Unit Admitted: Medical Floor Referrals: MIKIE AREVALO FNP-C [NO LOCAL MD] - Follow up as needed
[2017-10-05] MEDS ORDERED: NORMAL SALINE 250 ML IV PRN (20:44)
[2017-10-05] MEDS ORDERED: ONDANSETRON 4 MG TAB.RAPDIS PO ONE (20:46)
[2017-10-05 20:57] LABS: ABSOLUTE BASOPHILS # (AUTO) 0.1 10^3/uL (0.0-0.2); ABSOLUTE EOSINOPHILS # (AUTO) 0.2 10^3/uL (0.0-0.6); ABSOLUTE LYMPHOCYTES (AUTO) 1.9 10^3/uL (0.5-4.7); ABSOLUTE MONOCYTES (AUTO) 1.1 10^3/uL (0.1-1.4); ABSOLUTE NEUT (AUTO) 10.9 10^3/uL (1.7-8.2); EOSINOPHILS % (AUTO) 1.5 % (0-6); HEMATOCRIT 21.3 % (36.0-47.0); LYMPHOCYTES % (AUTO) 13.1 % (13-45); MEAN CORPUSCULAR HEMOGLOBIN 20.4 pg (27.0-33.4); MEAN CORPUSCULAR VOLUME 64 fl (80-97); MONOCYTES % (AUTO) 7.5 % (3-13); PLATELET COUNT 310 10^3/uL (150-450); RED BLOOD COUNT 3.34 10^6/uL (3.72-5.28); RED CELL DISTRIBUTION WIDTH 20.6 % (11.5-14.0); SEGMENTED NEUTROPHILS % (AUTO) 76.9 % (42-78); TOTAL CELLS COUNTED % (AUTO) 100 %; WHITE BLOOD COUNT 14.2 10^3/uL (4.0-10.5)
[2017-10-05 21:14] LABS: INTERNATIONAL RATION (INR) 1.34; PROTHROMBIN TIME 17.2 SEC (11.4-15.4)
[2017-10-05 21:22] LABS: ALANINE AMINOTRANSFERASE 30 U/L (9-52); ALBUMIN 3.4 g/dL (3.5-5.0); ALKALINE PHOSPHATASE 82 U/L (38-126); ANION GAP 13 (5-19); ASPARTATE AMINO TRANSFERASE 32 U/L (14-36); BILIRUBIN,DIRECT 0.2 mg/dL (0.0-0.4); BILIRUBIN,TOTAL 0.2 mg/dL (0.2-1.3); BLOOD UREA NITROGEN 45 mg/dL (7-20); CARBON DIOXIDE 22 mmol/L (22-30); CHLORIDE 96 mmol/L (98-107); GLUCOSE 132 mg/dL (75-110); HEMOGLOBIN 6.8 g/dL (12.0-15.5); POTASSIUM 4.1 mmol/L (3.6-5.0); SODIUM 130.7 mmol/L (137-145); TOTAL PROTEIN 5.9 g/dL (6.3-8.2)
[2017-10-05 21:24] LABS: ANISOCYTOSIS 2+; HYPOCHROMASIA 1+; OVALOCYTES 1+; POIKILOCYTOSIS 2+; POLYCHROMASIA SLIGHT; TEAR DROP CELLS 1+
[2017-10-05 21:25] LABS: PLATELET COMMENT ADEQUATE
[2017-10-05 21:31] LABS: CALCIUM 6.9 mg/dL (8.4-10.2)
[2017-10-05 22:00] LABS: IRON 14.9 ug/dL (37-170)
[2017-10-05] MEDS ORDERED: IRON SUCROSE COMPLEX INJ/PF 100 MG/5 ML SDV IV ONE (22:32)
[2017-10-05] MEDS ORDERED: MAG HYDROX/AL HYDROX/SIMETH SUSP 30 ML UDCUP PO PRN (22:35)
[2017-10-05] MEDS ORDERED: CALCIUM GLUCONATE 1,000 MG in DEXTROSE 5%-WATER 50 ML IV ONE (22:39)
[2017-10-05 23:00] LABS: RETICULOCYTE COUNT (AUTO) 2.13 % (0.66-2.85)
[2017-10-05 23:11] LABS: FOLATE > 20.00 ng/mL (>2.76)
[2017-10-05] MEDS ORDERED: HYDROCODONE/ACETAMINOPHEN 5-325 MG TABLET PO ONE (23:45)
[2017-10-06] MEDS ORDERED: CALCIUM GLUCONATE 1000 MG/10 ML INJ IV ONE (01:54)
[2017-10-06 02:30] LABS: APPEARANCE,URINE CLEAR; BILIRUBIN,URINE NEGATIVE (NEGATIVE); COLOR,URINE YELLOW; GLUCOSE, URINE NEGATIVE (NEGATIVE); KETONES,URINE NEGATIVE (NEGATIVE); LEUKOCYTE ESTERASE,URINE TRACE (NEGATIVE); NITRITE,URINE NEGATIVE (NEGATIVE); PROTEIN,URINE NEGATIVE (NEGATIVE); URINE SPECIFIC GRAVITY 1.004; UROBILINOGEN,URINE NEGATIVE mg/dL (<2.0)
--- NOTE | 2017-10-06 05:07 | PDOC H&P ---
History of Present Illness Admission Date/PCP: 10/05/17 22:44 Patient complains of: Fatigue and abnormal labs History of Present Illness: JUS ERICKSON is a 72 year old female with history of atrial fibrillation on Eliquis, COPD, chronic bronchitis ongoing tobacco dependence, chronic kidney disease and iron deficiency anemia requiring iron and blood transfusions. She presents with a week of fatigue, seen by primary care finding a 2.5 unit drop of her hemoglobin over the last 3 months. Patient denies dark stools bright red blood per rectum, vaginal bleeding or dark colored urine. Fecal occult blood is negative, unremarkable bilirubin, she is ordered 1 unit of packed red blood cells, IV iron and referred to the hospitalist for admission. Currently denies shortness of breath or chest pain. Past Medical History Cardiac Medical History: Reports: Atrial Fibrillation, Coronary Artery Disease, Hypertension - medicated, Peripheral Vascular Disease - S/P ANGIOPLASTY & STENTS , ON ELIQUIS Denies: Myocardial Infarction - POSSIBLY PER PT ?silent [place] Pulmonary Medical History: Reports: Bronchitis - was tx 01/16 with solumedrol & Z pack for suspected bronchitis, Chronic Obstructive Pulmonary Disease (COPD), Pneumonia - 2006 Denies: Asthma EENT Medical History: Reports: None Neurological Medical History: Reports: None Denies: Seizures Endocrine Medical History: Reports: None, Diabetes Mellitus Type 1 Malignancy Medical History: Reports: None GI Medical History: Reports: None Denies: Hepatitis, Hiatal Hernia Musculoskeltal Medical History: Reports: Arthritis - OSTEO Psychiatric Medical History: Reports: Depression Hematology: Reports: Anemia Denies: Sickle Cell Disease Past Surgical History Past Surgical History: Reports: Hysterectomy, Mastectomy - right breast/ restrictions to rt arm, Vascular Surgery Denies: Amputation, Pacemaker Social History Information Source: Patient, [facility] Records Lives with: Family Smoking Status: Current Every Day Smoker Frequency of Alcohol Use: Rare Drugs: None - Advance Directive Resuscitation Status: Full Code Family History Family History: Hypertension Parental Family History Reviewed: Yes Children Family History Reviewed: Yes Sibling(s) Family History Reviewed.: Yes Medication/Allergy Home Medications: Atorvastatin Calcium [Lipitor 10 Mg Tablet] 80 mg PO QHS 10/14/11 Levothyroxine Sodium [Synthroid 112 Mcg Tablet] 0.125 mcg PO DAILY 10/14/11 Sertraline HCl [Zoloft] 100 mg PO DAILY 10/14/11 Calcitriol [Rocaltrol 0.25 Mcg Capsule] 0.5 mcg PO DAILY 11/12/11 Gabapentin [Neurontin 100 mg Capsule] 100 mg PO TID 06/15/16 Magnesium Oxide [Mag-Ox 400 mg Tablet] 400 mg PO BID 06/15/16 Potassium Chloride [Klor-Con 10] 10 meq PO DAILY 06/15/16 Sitagliptin Phosphate [Januvia 50 mg Tablet] 50 mg PO DAILY 06/15/16 Albuterol Sulfate [Albuterol Sulfate 2.5mg/3 mL] 2.5 mg IH TID 12/30/16 Albuterol Sulfate [Proair HFA Inhalation Aerosol 8.5 gm MDI] 2 puff IH Q4 PRN Apixaban [Eliquis] 5 mg PO DAILY 12/30/16 Budesonide/Formoterol Fumarate [Symbicort Hfa 160-4.5 Mcg Inhaler 6 gm] 2 puff IH Q12 12/30/16 Bumetanide 1.5 mg PO BID 12/30/16 Calcium Carbonate 1 tab PO TID 12/30/16 Cholecalciferol (Vitamin D3) [Vitamin D3] 400 unit PO DAILY 12/30/16 Cyanocobalamin/FA/Pyridoxine [Folbee Tablet] 1 tab PO DAILY 12/30/16 Cyclobenzaprine HCl 10 mg PO PRN PRN 12/30/16 Diazepam 5 mg PO Q6 PRN 12/30/16 Hydralazine HCl 1.5 tab PO TID 12/30/16 Hydrocodone/Acetaminophen [Hydrocodon-Acetaminophn 10-300] 1 each PO Q4 PRN 09/10 Isosorbide Dinitrate [Isordil Titradose 10 Mg Tablet] 10 mg PO TID 12/30/16 Meclizine HCl 25 mg PO TID PRN 12/30/16 Melatonin 5 mg PO PRN PRN 12/30/16 Metoprolol Succinate 25 mg PO DAILY 12/30/16 Nitroglycerin 0.4 mg SL PRN PRN 12/30/16 Pantoprazole Sodium 40 mg PO DAILY 12/30/16 Tiotropium [place] [Spiriva Handihaler 18 mcg/dose (30 Dose)] 1 cap IH DAILY 09/10 Allergies/Adverse Reactions: acetaminophen [From Percocet] Allergy (Intermediate, Verified 05/06/17 11:31) Hives oxycodone [From Percocet] Allergy (Intermediate, Verified 05/06/17 11:31) Hives codeine [Codeine] Allergy (Mild, Verified 05/06/17 11:31) feels out of control Tetanus Vaccines and Toxoid [Tetanus] Allergy (Unknown, Verified 05/06/17 11:31) arm swell at injection site Review of Systems Constitutional: PRESENT: fatigue, weakness. ABSENT: chills, fever(s), headache( s), weight gain, weight loss Eyes: ABSENT: visual disturbances Ears: ABSENT: hearing changes Cardiovascular: ABSENT: chest pain, dyspnea on exertion, edema, orthropnea, palpitations Respiratory: ABSENT: cough, hemoptysis Gastrointestinal: ABSENT: abdominal pain, constipation, diarrhea, hematemesis, hematochezia, nausea, vomiting Genitourinary: ABSENT: dysuria, hematuria Musculoskeletal: ABSENT: joint swelling Integumentary: ABSENT: rash, wounds Neurological: ABSENT: abnormal gait, abnormal speech, confusion, dizziness, focal weakness, syncope Psychiatric: ABSENT: anxiety, depression, homidical ideation, suicidal ideation Endocrine: ABSENT: cold intolerance, heat intolerance, polydipsia, polyuria Hematologic/Lymphatic: ABSENT: easy bleeding, easy bruising Physical Exam Vital Signs: Temp Pulse Resp BP Pulse Ox 97.9 F 59 L 18 119/60 96 10/06/17 04:48 10/06/17 04:46 10/06/17 04:46 10/06/17 04:46 10/06/17 04:46 Intake & Output 10/04/17 10/05/17 10/06/17 11:59 11:59 11:59 Intake Total 300 Balance 300 General appearance: PRESENT: no acute distress, cooperative. ABSENT: disheveled , hard of hearing Head exam: PRESENT: atraumatic, normocephalic Eye exam: PRESENT: conjunctiva pale, EOMI, PERRLA. ABSENT: conjunctival injection Ear exam: PRESENT: normal external ear exam Mouth exam: PRESENT: moist, tongue midline Neck exam: ABSENT: carotid bruit, JVD, lymphadenopathy, thyromegaly Respiratory exam: PRESENT: crackles, prolonged expiratory phas, tachypnea. ABSENT: accessory muscle use, rales, rhonchi, wheezes Cardiovascular exam: PRESENT: irregular rhythm, +S1, +S2, systolic murmur, tachycardia Pulses: PRESENT: normal dorsalis pedis pul Vascular exam: PRESENT: normal capillary refill GI/Abdominal exam: PRESENT: normal bowel sounds, soft. ABSENT: distended, guarding, mass, organolmegaly, rebound, tenderness Rectal exam: PRESENT: deferred Extremities exam: PRESENT: full ROM. ABSENT: calf tenderness, clubbing, pedal edema Neurological exam: PRESENT: alert, awake, oriented to person, oriented to place , oriented to time, oriented to situation, CN II-XII grossly intact. ABSENT: motor sensory deficit Psychiatric exam: PRESENT: appropriate affect, normal mood. ABSENT: homicidal ideation, suicidal ideation Skin exam: PRESENT: dry, intact, warm. ABSENT: cyanosis, rash Results Laboratory Results: 10/06/17 02:14 Urine Color YELLOW Urine Appearance CLEAR Urine pH 5.0 Ur Specific [place] 1.004 Urine Protein NEGATIVE Urine Glucose (UA) NEGATIVE Urine Ketones NEGATIVE Urine Blood NEGATIVE Urine Nitrite NEGATIVE Ur Leukocyte Esterase TRACE H Urine WBC (Auto) 4 Assessment & Plan - Diagnosis (1) Anemia Qualifiers: Anemia type: iron deficiency Qualified Code(s): D64.9 - Anemia, unspecified Is this a current diagnosis for this admission?: Yes Plan: Med floor observation, multifactorial secondary to chronic kidney disease and iron deficiency. Packed red blood cells and IV iron sucrose ordered, follow-up outpatient GI given no recent colonoscopy and her remote history of diverticulosis. (2) CKD (chronic kidney disease) stage 3, GFR 30-59 ml/min Is this a current diagnosis for this admission?: Yes Plan: Avoid nephrotoxic meds and doses, IV fluid challenge reevaluate chemistry (3) Hypocalcemia Is this a current diagnosis for this admission?: Yes Plan: Secondary to chronic kidney disease, replace and reevaluate chemistry. - Time Time Spent: 50 to 70 Minutes - Inpatient Certification Medical Necessity: Need Close Monitoring Due to Risk of Patient Decompensation
[2017-10-06 08:11] LABS: ABSOLUTE BASOPHILS # (AUTO) 0.1 10^3/uL (0.0-0.2); ABSOLUTE EOSINOPHILS # (AUTO) 0.2 10^3/uL (0.0-0.6); ABSOLUTE LYMPHOCYTES (AUTO) 1.5 10^3/uL (0.5-4.7); ABSOLUTE MONOCYTES (AUTO) 1.2 10^3/uL (0.1-1.4); BASOPHILS % (AUTO) 0.9 % (0-2); HEMATOCRIT 26.6 % (36.0-47.0); HEMOGLOBIN 8.7 g/dL (12.0-15.5); LYMPHOCYTES % (AUTO) 13.9 % (13-45); MEAN CORPUSCULAR HEMOGLOBIN 22.2 pg (27.0-33.4); MEAN CORPUSCULAR HGB CONC 32.5 g/dL (32.0-36.0); MONOCYTES % (AUTO) 10.5 % (3-13); PLATELET COUNT 252 10^3/uL (150-450); RED BLOOD COUNT 3.91 10^6/uL (3.72-5.28); SEGMENTED NEUTROPHILS % (AUTO) 72.7 % (42-78); TOTAL CELLS COUNTED % (AUTO) 100 %; WHITE BLOOD COUNT 11.1 10^3/uL (4.0-10.5)
[2017-10-06 08:15] LABS: MEAN CORPUSCULAR VOLUME 68 fl (80-97)
[2017-10-06 08:22] LABS: ANION GAP 14 (5-19); BLOOD UREA NITROGEN 43 mg/dL (7-20); CARBON DIOXIDE 22 mmol/L (22-30); CHLORIDE 100 mmol/L (98-107); GLUCOSE 91 mg/dL (75-110); POTASSIUM 3.8 mmol/L (3.6-5.0); SODIUM 136.3 mmol/L (137-145)
[2017-10-06 08:34] LABS: CALCIUM 6.9 mg/dL (8.4-10.2)
[2017-10-06 08:39] LABS: ANISOCYTOSIS 3+; OVALOCYTES 2+
[2017-10-06 08:40] LABS: HYPOCHROMASIA 2+; PLATELET COMMENT ADEQUATE; POLYCHROMASIA 1+; TEAR DROP CELLS 1+
--- NOTE | 2017-10-06 09:46 | PDOC DISCHARGE SUMMARY ---
General - Admit/Disc Date/PCP Admission Date/Primary Care Provider: 10/05/17 22:44 Discharge Date: 10/06/17 - Discharge Diagnosis (1) Anemia Is this a current diagnosis for this admission?: Yes (2) CKD (chronic kidney disease) stage 3, GFR 30-59 ml/min Is this a current diagnosis for this admission?: Yes (3) Hypocalcemia Is this a current diagnosis for this admission?: Yes - Additional Information Resuscitation Status: Full Code Discharge Activity: Activity As Tolerated Home Medications: Albuterol Sulfate [Proair HFA] 2 puff IH Q4HP PRN 10/06/17 Albuterol Sulfate [Ventolin 0.042% Neb 1.25 mg/3 ml Ampul] 1.25 mg NEB RTQ4HP PRN 10/06/17 Apixaban [Eliquis 5 mg Tablet] 5 mg PO BID 10/06/17 Atorvastatin Calcium [Lipitor 80 mg Tablet] 80 mg PO QHS 10/06/17 Budesonide/Formoterol Fumarate [Symbicort Hfa 160-4.5 Mcg Inhaler 6 gm] 2 puff IH Q12 10/06/17 Bumetanide [Bumex 1 mg Tablet] 1 mg PO BID 10/06/17 Calcitriol [Rocaltrol 0.5 mcg Capsule] 1 cap PO DAILY 10/06/17 Calcium Carbonate [Tums Chewable 500 mg Tab.chew] 500 mg PO TIDP PRN 10/06/17 Cyanocobalamin/FA/Pyridoxine [Folbee Tablet] 1 tab PO DAILY 10/06/17 Cyclobenzaprine HCl [Flexeril 10 mg Tablet] 10 mg PO DAILYP PRN 10/06/17 Diazepam [Valium 5 mg Tablet] 5 mg PO Q8HP PRN 10/06/17 Gabapentin [Neurontin 100 mg Capsule] 100 mg PO Q8 10/06/17 Hydralazine HCl [Apresoline 50 mg Tablet] 50 mg PO Q6 10/06/17 Hydrocodone/Acetaminophen [Hydrocodone-Acetamin 10-300 mg] 1 each PO Q6HP PRN Isosorbide Dinitrate [Isordil Titradose 10 Mg Tablet] 10 mg PO Q8 10/06/17 Levothyroxine Sodium [Synthroid] 125 mcg PO Q6AM 10/06/17 Magnesium Oxide [Mag-Ox 400 mg Tablet] 400 mg PO DAILY 10/06/17 Meclizine HCl [Antivert 25 mg Tablet] 25 mg PO TIDP PRN 10/06/17 Melatonin [Melatonin 5 mg Tablet] 5 mg PO HSP PRN 10/06/17 Metoprolol Succinate [Toprol Xl 50 mg Tab.sr] 50 mg PO DAILY 10/06/17 Nitroglycerin [Nitromist] 1 spray TL Q5MP PRN 10/06/17 Ondansetron [Zofran Odt 4 mg Tablet] 4 mg PO Q8HP PRN 10/06/17 Pantoprazole Sodium [Protonix] 40 mg PO Q6AM 10/06/17 Potassium Chloride [Klor-Con 10] 10 meq PO DAILY 10/06/17 Sertraline HCl [Zoloft] 100 mg PO DAILY 10/06/17 Sitagliptin Phosphate [Januvia 50 mg Tablet] 50 mg PO QAM 10/06/17 Tiotropium [place] [Spiriva Handihaler 5 Cap/Kit (18 Mcg/Cap)] 1 cap IH DAILY History of Present Illness History of Present Illness: JUS ERICKSON is a 72 year old female admitted earlier this morning with and found to be anemic with fatigue hemoglobin of 6.9. She tells me that she has a history of anemia although it has been a little worse than normal according to her. Hospital Course Hospital Course: This patient was admitted earlier this morning with and found to be anemic with fatigue hemoglobin of 6.9. She tells me that she has a history of anemia although it has been a little worse than normal according to her. She was transfused with 1 unit of packed red blood cells and also received intravenous iron. By this time I saw her later on in the day patient was anxious to be discharged. She denies any abdominal pain nausea vomiting. Been worked up for anemia however patient has never had a colonoscopy done at the age of 72 years. She tells me that she is the one that has refused to be scheduled for the colonoscopy. I have impressed upon her the need to have a colonoscopy done especially given the fact of being on anticoagulant as well as iron deficiency anemia. She does have a long history of malignancy including breast cancer and she tells me all the things too numerous to mention. She was also found to be hypocalcemic although the clinical significance of this is unknown. She has been advised that this needs to be followed up as outpatient also. Would no further interventions been planned and with patient apparently feeling better than at admission she is been discharged home for outpatient follow-up with advised to follow-up with her physician for GI referral as well as other evaluation as advised Physical Exam Vital Signs: Temp Pulse Resp BP Pulse Ox 98.1 F 59 L 14 157/68 H 93 10/06/17 07:44 10/06/17 07:50 10/06/17 09:00 10/06/17 08:00 10/06/17 09:00 Intake & Output 10/05/17 10/06/17 10/07/17 06:59 06:59 06:59 Intake Total 300 400 Balance 300 400 General appearance: PRESENT: no acute distress, well-developed, well-nourished Head exam: PRESENT: atraumatic, normocephalic Eye exam: PRESENT: conjunctiva pink, EOMI, PERRLA. ABSENT: scleral icterus Ear exam: PRESENT: normal external ear exam Mouth exam: PRESENT: moist, tongue midline Neck exam: ABSENT: carotid bruit, JVD, lymphadenopathy, thyromegaly Respiratory exam: PRESENT: clear to auscultation john. ABSENT: rales, rhonchi, wheezes Cardiovascular exam: PRESENT: RRR, other - Pacemaker left chest wall. ABSENT: diastolic murmur, rubs, systolic murmur Pulses: PRESENT: normal dorsalis pedis pul Vascular exam: PRESENT: normal capillary refill GI/Abdominal exam: PRESENT: normal bowel sounds, soft. ABSENT: distended, guarding, mass, organolmegaly, rebound, tenderness Rectal exam: PRESENT: deferred Extremities exam: PRESENT: full ROM. ABSENT: calf tenderness, clubbing, pedal edema Musculoskeletal exam: PRESENT: other - Left mastectomy Neurological exam: PRESENT: alert, awake, oriented to person, oriented to place , oriented to time, oriented to situation, CN II-XII grossly intact. ABSENT: motor sensory deficit Psychiatric exam: PRESENT: appropriate affect, normal mood. ABSENT: homicidal ideation, suicidal ideation Skin exam: PRESENT: dry, intact, warm. ABSENT: cyanosis, rash Results Laboratory Results: 10/06/17 07:30 10/06/17 07:30 10/06/17 10/06/17 10/06/17 02:14 07:30 07:30 WBC 11.1 H RBC 3.91 Hgb 8.7 L Hct 26.6 L MCV 68 L D MCH 22.2 L MCHC 32.5 RDW 26.0 H Plt Count 252 Seg Neutrophils % 72.7 Lymphocytes % 13.9 Monocytes % 10.5 Eosinophils % 2.0 Basophils % 0.9 Absolute Neutrophils 8.0 Absolute Lymphocytes 1.5 Absolute Monocytes 1.2 Absolute Eosinophils 0.2 Absolute Basophils 0.1 Sodium 136.3 L Potassium 3.8 Chloride 100 Carbon Dioxide 22 Anion Gap 14 BUN 43 H Creatinine 2.24 H Est GFR ( Amer) 26 L Est GFR (Non-Af Amer) 21 L Glucose 91 Calcium 6.9 L* Urine Color YELLOW Urine Appearance CLEAR Urine pH 5.0 Ur Specific [place] 1.004 Urine Protein NEGATIVE Urine Glucose (UA) NEGATIVE Urine Ketones NEGATIVE Urine Blood NEGATIVE Urine Nitrite NEGATIVE Ur Leukocyte Esterase TRACE H Urine WBC (Auto) 4 Qualifiers - * PATIENT BEING DISCHARGED WITH ANY OF THE FOLLOWING DIAGNOSIS: No Plan Time Spent: Less than 30 Minutes
[2017-10-06] MEDS ORDERED: BUDESONIDE/FORMOTEROL 160-4.5 MCG 60 PUFF/6 GM MDI IH SCH (10:00)
[2017-10-06] MEDS ORDERED: HYDRALAZINE HCL 10 MG TABLET PO SCH (10:00)
[2017-10-06] MEDS ORDERED: LEVOTHYROXINE SODIUM 0.112 MG TABLET PO SCH (10:00)
[2017-10-06] MEDS ORDERED: CALCIUM CARBONATE 500 MG TAB.CHEW PO SCH (10:00)
[2017-10-06] MEDS ORDERED: GABAPENTIN 100 MG CAPSULE PO SCH (10:00)
[2017-10-06] MEDS ORDERED: APIXABAN 5 MG TABLET PO SCH (10:00)
[2017-10-06] MEDS ORDERED: CALCITRIOL 0.25 MCG CAPSULE PO SCH (10:00)
[2017-10-06 10:37] VITALS: BP 132/90
[2017-10-06] MEDS ORDERED: ATORVASTATIN CALCIUM 10 MG TABLET PO SCH (22:00)
== END 2017-10-06 10:06 | disposition home or self-care (01) ==
LOC: ER 19:49 → EH 22:44
PROVIDERS: ADMIT Internal Medicine; ATTEND Internal Medicine
PROC: 30233N1 Transfusion of Nonautologous Red Blood Cells into Peripheral Vein, Percutaneous Approach (ICD-10-PCS; principal; 2017-10-06)
DX: D50.9 Iron deficiency anemia, unspecified (principal); I12.9 Hypertensive chronic kidney disease with stage 1 through stage 4 chronic kidney disease, or unspecified chronic kidney disease; N18.3 Chronic kidney disease, stage 3 (moderate); D63.1 Anemia in chronic kidney disease; E10.51 Type 1 diabetes mellitus with diabetic peripheral angiopathy without gangrene; E10.22 Type 1 diabetes mellitus with diabetic chronic kidney disease; I48.91 Unspecified atrial fibrillation; E83.51 Hypocalcemia; I25.10 Atherosclerotic heart disease of native coronary artery without angina pectoris; R13.10 Dysphagia, unspecified; F17.210 Nicotine dependence, cigarettes, uncomplicated; J44.9 Chronic obstructive pulmonary disease, unspecified; M19.90 Unspecified osteoarthritis, unspecified site; Z79.899 Other long term (current) drug therapy; Z79.01 Long term (current) use of anticoagulants; Z85.3 Personal history of malignant neoplasm of breast; Z95.0 Presence of cardiac pacemaker; Z82.49 Family history of ischemic heart disease and other diseases of the circulatory system; Z90.11 Acquired absence of right breast and nipple
CPT/HCPCS: 99285; 96375; 96365; 86900; 86901; 36415 ×2; 36430; 86850; 82607; 82728; 82746; 83540; 85025 ×2; 85610; 82272; 85045; 80048; 80053; 81001; 86920; P9016; J1756; J0610; A9270 ×2; J7050; 71046; 83036; 84443; J3490; S0119

== ENCOUNTER → 2017-10-05 | Outpatient (CLI) | payer MEDICARE, OTHER ==
--- NOTE | 2017-10-05 13:32 | RADIOLOGY REPORT (SQ) ---
EXAM DESCRIPTION: CHEST PA/LATERAL COMPLETED DATE/TIME: 10/05/2017 1:24 pm REASON FOR STUDY: FEVER,UNSPECIFIED FEVER CAUSE COMPARISON: None. EXAM PARAMETERS: NUMBER OF VIEWS: two views TECHNIQUE: Digital Frontal and Lateral radiographic views of the chest acquired. RADIATION DOSE: NA LIMITATIONS: none FINDINGS: LUNGS AND PLEURA: No opacities, masses or pneumothorax. No pleural effusion. MEDIASTINUM AND HILAR STRUCTURES: No masses or contour abnormalities. HEART AND VASCULAR STRUCTURES: Heart normal size. No evidence for failure. BONES: No acute findings. HARDWARE: None in the chest. OTHER: No other significant finding. IMPRESSION: NO SIGNIFICANT RADIOGRAPHIC FINDING IN THE CHEST. TECHNICAL DOCUMENTATION: JOB ID: [id number] [employer]- All Rights Reserved Reading location - IP/workstation name: [email or web address]
[2017-10-05 13:47] LABS: ABSOLUTE BASOPHILS # (AUTO) 0.2 10^3/uL (0.0-0.2); ABSOLUTE EOSINOPHILS # (AUTO) 0.2 10^3/uL (0.0-0.6); ABSOLUTE LYMPHOCYTES (AUTO) 1.3 10^3/uL (0.5-4.7); ABSOLUTE MONOCYTES (AUTO) 0.9 10^3/uL (0.1-1.4); ABSOLUTE NEUT (AUTO) 10.5 10^3/uL (1.7-8.2); BASOPHILS % (AUTO) 1.2 % (0-2); EOSINOPHILS % (AUTO) 1.3 % (0-6); LYMPHOCYTES % (AUTO) 10.2 % (13-45); MEAN CORPUSCULAR HEMOGLOBIN 20.8 pg (27.0-33.4); MEAN CORPUSCULAR HGB CONC 32.8 g/dL (32.0-36.0); MONOCYTES % (AUTO) 6.7 % (3-13); PLATELET COUNT 301 10^3/uL (150-450); RED BLOOD COUNT 3.31 10^6/uL (3.72-5.28); RED CELL DISTRIBUTION WIDTH 20.6 % (11.5-14.0); SEGMENTED NEUTROPHILS % (AUTO) 80.6 % (42-78); TOTAL CELLS COUNTED % (AUTO) 100 %; WHITE BLOOD COUNT 13.1 10^3/uL (4.0-10.5)
[2017-10-05 13:54] LABS: MEAN CORPUSCULAR VOLUME 64 fl (80-97)
[2017-10-05 13:56] LABS: HEMOGLOBIN 6.9 g/dL (12.0-15.5)
[2017-10-05 14:10] LABS: ANISOCYTOSIS 2+; HYPOCHROMASIA 2+; OVALOCYTES 2+; PLATELET COMMENT ADEQUATE; POIKILOCYTOSIS 2+; POLYCHROMASIA SLIGHT; TEAR DROP CELLS 1+
[2017-10-05 14:16] LABS: ALANINE AMINOTRANSFERASE 33 U/L (9-52); ALBUMIN 3.5 g/dL (3.5-5.0); ALKALINE PHOSPHATASE 92 U/L (38-126); ANION GAP 15 (5-19); ASPARTATE AMINO TRANSFERASE 33 U/L (14-36); BILIRUBIN,DIRECT 0.2 mg/dL (0.0-0.4); BILIRUBIN,TOTAL 0.2 mg/dL (0.2-1.3); BLOOD UREA NITROGEN 44 mg/dL (7-20); CARBON DIOXIDE 21 mmol/L (22-30); CHLORIDE 99 mmol/L (98-107); GLUCOSE 175 mg/dL (75-110); POTASSIUM 4.5 mmol/L (3.6-5.0); SODIUM 134.8 mmol/L (137-145)
[2017-10-05 14:28] LABS: CALCIUM 6.9 mg/dL (8.4-10.2)
[2017-10-06 11:39] LABS: PATH REVIEW PATHOLOGIST REVIEWED
== END ==
LOC: OD 12:36
PROVIDERS: ATTEND Nurse Practitioner Family
DX: E11.9 Type 2 diabetes mellitus without complications (principal); E78.2 Mixed hyperlipidemia; M15.9 Polyosteoarthritis, unspecified; N18.4 Chronic kidney disease, stage 4 (severe); R50.9 Fever, unspecified
CPT/HCPCS: 36415; 71046; 80053; 83036; 84443; 85025